=== PATIENT | female | born 1950 | race Caucasian/White ===

== ENCOUNTER 2017-12-02 17:49 | Emergency (ER) | payer BC, OTHER ==
--- NOTE | 2017-12-02 17:52 | PDOC ---
History of Present Illness - General History Source: Patient, Family, Old Records Exam Limitations: No Limitations - History of Present Illness Initial Comments: 12/02/17 18:24 The patient is a 66 year old female with a past medical history of COPD who presents to the Emergency Department with shortness of breath for 2 months. The patient states that her symptoms have persisted despite visiting Urgent Care 4 times since her symptoms originally onset in early October. She states that she took Albuterol at 6pm tonight with no alleviation of symptoms. Patient endorses a history of smoking. She does not have a primary care physician. She denies chest pain, nausea, and diarrhea. <Sincere Coker - Last Filed: 12/02/17 18:33> <Michael Platt - Last Filed: 12/02/17 18:41> - General Chief Complaint: Shortness of Breath Stated Complaint: SHORT OF BREATH Time Seen by Provider: 12/02/17 17:52 Past History <Sincere Coker - Last Filed: 12/02/17 18:33> - Past Medical History Asthma: Yes COPD: Yes - Suicide/Smoking/Psychosocial Hx Smoking History: Current every day smoker Have you smoked in the past 12 months: Yes Number of Cigarettes Smoked Daily: 10 'Breaking Loose' booklet given: 05/31/16 Hx Alcohol Use: No Drug/Substance Use Hx: No Substance Use Type: None Hx Substance Use Treatment: No <Michael Platt - Last Filed: 12/02/17 18:41> - Past Medical History Allergies/Adverse Reactions: Allergies Allergy/AdvReac Type Severity Reaction Status Date / Time No Known Allergies Allergy Verified 12/02/17 17:56 Home Medications: Ambulatory Orders Albuterol Sulfate [Proventil HFA Inhaler -] 1 - 2 inh PO QID 05/31/16 Acetaminophen [Tylenol .Regular Strength -] 650 mg PO Q6H PRN #0 tablet Albuterol 0.083% Nebulizer Valerie [Ventolin 0.083% Nebulizer Soln -] 1 amp NEB Q4H PRN #90 amp 06/03/16 Budesonide/Formeterol Fumarate [SYMBICORT 80/4.5mcg -] 2 puff IH BID #1 inhaler 06/03/16 Azithromycin [Zithromax -] 250 mg PO UTDICT 12/02/17 Review of Systems - Review of Systems Able to Perform ROS?: Yes Comments:: 12/02/17 18:24 CONSTITUTIONAL: No: Chills, Diaphoresis, Fever, Loss of Appetite, Malaise, Weakness, Weight Stable, Unintentional Wgt. Loss, Unexplained weight Loss, Other HEENTM: No: Eye Pain, Blurred Vision, Tearing, Recent change in vision, Double Vision, Cataracts, Ear Pain, Ocular Prosthesis, Ear Discharge, Nose Pain, Nose Congestion, Tinnitus, Nose Bleeding, Hearing Loss, Throat Pain, Throat Swelling , Mouth Pain, Dental Problems, Difficulty Swallowing, Mouth Swelling, Other RESPIRATORY: Yes: Symptoms reported, See HPI. Shortness of breath, difficulty breathing. No: Stridor, Wheezing, Hemoptysis, Other CARDIAC (ROS): No: Chest Pain, Edema, Irregular Heart Rate, Lightheadedness, Palpitations, Syncope, Chest Tightness, Other ABD/GI: Yes: Symptoms Reported, See HPI. No: Abdominal Distended, Abd. Pain w/ defecation, Blood Streaked Bowels, Constipated, Diarrhea, Difficulty Swallowing , Nausea, Poor Appetite, Poor Fluid Intake, Rectal Bleeding, Vomiting, Indigestion, Abdominal cramping, Tarry Stools, Other : No: Dysuria MUSCULOSKELETAL: No: Back Pain, Gout, Joint Pain, Joint Swelling, Muscle Pain, Muscle Weakness, Neck Pain, Joint Stiffness, Other INTEGUMENTARY: No: Bruising, Change in Color, Change in Hair/Nails, Dryness, Erythema, Flushing , Lesions, Lumps, Pallor, Pruritus, Rash, Sweating, Other NEUROLOGICAL: No: Headache, Numbness, Paresthesia, Pre-Existing Deficit, Seizure, Tingling, Tremors, Weakness, Unsteady Gait, Ataxia, Dizziness, Other All Other Systems: Reviewed and Negative <Sincere Coker - Last Filed: 12/02/17 18:33> *Physical Exam - Vital Signs Last Vital Signs Temp Pulse Resp BP Pulse Ox 99.8 F H 124 H 36 H 120/85 94 L 12/02/17 17:51 12/02/17 17:51 12/02/17 17:51 12/02/17 17:51 12/02/17 17:51 - Physical Exam Comments: 12/02/17 18:25 Physical Exam GENERAL APPEARANCE: Yes: Appropriately Dressed, Nourished. Mild Distress. No: Disheveled, Alcohol on Breath, Intoxicated, Cachexia, Obese, Thin, Other HEENT: positive: EOMI, SHERYL, Normal ENT Inspection, Normal Voice, TMs Normal, Pharynx Normal. negative: Symmetrical, Pale Conjunctiva, Photophobia, Scleral Icterus (R), Scleral Icterus (L), Muffled/Hoarse voice, Pharyngeal Erythema, Tonsillar Exudate, Tonsillar Erythema, Nasal Congestion, Rhinorrhea, Sinus Tenderness, Orbits, Hearing Decreased, Hearing Grossly Normal, TM Bulging, TM Dull, TM Erythema, Lesions, Duarte, Excessive drooling, Thrush, Other NECK: positive: Trachea midline, Normal Thyroid, Supple. negative: Tender, Rigid, Carotid bruit, Decreased range of motion, Stridor, Lymphadenopathy (R), Lymphadenopathy (L), Rigidity, Tender lateral, Tender midline, Thyromegaly, Other RESPIRATORY/CHEST: positive: Course breath sounds. Diminished breath sounds negative: Chest Tender, Rapid RR, Crackles, Rales, Rhonchi, Stridor, Wheezing, Dullness, Hyperresonant, Pleural Rub, Other CARDIOVASCULAR: positive: Tachycardia, Regular Rhythm, S1, S2. negative: Edema , JVD, Murmur, Diastolic Murmur, Systolic Murmur, Gallop/S3, Gallop/S4. VASCULAR PULSES: Femoral (R): 4+, Femoral (L): 4+, Carotid (R): 4+, Carotid (L) : 4+, Dorsalis-Pedis (R): 4+, Dorsalis-Pedis (L): 4+ Gastrointestinal/Abdominal: positive: Normal Bowel Sounds, Flat, Soft. negative : Tender, Organomegaly, Pulsatile Mass, Increased Bowel Sounds, Decreased BS, Protuberant, Distended, Guarding, Rebound, Tenderness, Hernia, Mass, Hepatomegaly, Splenomegaly, Other LYMPHATIC: negative: Adenopathy, Tenderness, Other MUSCULOSKELETAL: positive: Normal Inspection. negative: CVA Tenderness, CVA Tenderness (R), CVA Tenderness (L), Decreased Range of Motion, Muscle Spasm, Vertebral Tenderness, Other EXTREMITY: positive: Normal Capillary Refill, Normal Inspection, Normal Range of Motion. negative: Tender, Pelvis Stable, Coldness, Cyanosis, Delayed Capillary Refill, Pedal Edema, Swelling, Calf Tenderness, Erythema, Inflammation , Other INTEGUMENTARY: positive: Normal Color, Dry, Warm. negative: Cyanotic, Erythema , Jaundice, Mottled, Pale, Cold, Clammy, Diaphoresis, Moist, Hives, Petechiae, Rash, Swelling, Ecchymosis, Bruising, Other NEUROLOGIC: positive: beef tagger II-XII NML intact, Fully Oriented, Alert, Normal Mood/ Affect, Normal Response, Motor Strength 5/5. negative: Abnormal Cranial NS, Respond to painful stimulus, Responsive, EOM Palsy, Facial Droop, Numbness, Sensory Deficit, Finger to Nose, Confused, Disoriented, Depressed Affect, Babinski, Other 12/02/17 18:29 12/02/17 18:34 <Sincere Coker - Last Filed: 12/02/17 18:33> Progress Note - Progress Note Progress Note: CXR : increased markings, flattening diaphragms Pt will be enorsed to Dr. Ballesteros, COPD exacerbation BiPaP ordered, respiratory coming in Pt will require admission <Michael Platt - Last Filed: 12/02/17 18:41> *DC/Admit/Observation/Transfer - Attestations Scribe Attestion: 12/02/17 18:27 Documentation prepared by Sincere Coker, acting as rn medical surgical for Michael Platt MD. <Sincere Coker - Last Filed: 12/02/17 18:33> <Michael Platt - Last Filed: 12/02/17 18:41> Diagnosis at time of Disposition: COPD exacerbation - Discharge Dispostion Condition at time of disposition: Guarded
[2017-12-02] MEDS ORDERED: methylPREDNISolone NA SUCC 40 MG/1 ML VIAL IVPUSH ONE (18:20)
[2017-12-02] MEDS ORDERED: ALBUTEROL SO4 2.5/IPRATROPIUM 0.5 INH SOL 3 ML VIAL.NEB. NEB ONE ×2 (18:20→18:23)
[2017-12-02 18:22] VITALS: BP 120/85; TEMP 99.8; BMI 21.7
[2017-12-02] MEDS ORDERED: methylPREDNISolone NA SUCC 125 MG/2 ML VIAL ONE (18:23)
[2017-12-02 19:31] LABS: WHITE BLOOD COUNT 12.9 K/mm3 (4.0-10.8)
[2017-12-02 19:35] LABS: BASO % 0.3 % (0-2.0); HEMATOCRIT 39.2 % (32.4-45.2); HEMOGLOBIN 13.1 GM/dl (10.7-15.3); LYMPH % 10.6 % (8-40); MCH 32.6 pg (25.7-33.7); MCHC 33.4 g/dl (32.0-36.0); MEAN CELL VOLUME 97.5 fl (80-96); MEAN PLT VOLUME 8.4 fl (7.5-11.1); MONO % 8.6 % (3.8-10.2); NEUT % 79.5 % (42.8-82.8); PLATELET COUNT 316 K/MM3 (134-434); RBC 4.01 M/mm3 (3.60-5.2); RDW 12.9 % (11.6-15.6)
[2017-12-02 19:40] VITALS: PULSE 110
[2017-12-02 19:40] LABS: ALBUMIN 3.4 g/dl (3.5-5.0); ALK PHOS 95 U/L (32-92); ANION GAP 10 (8-16); BILIRUBIN,TOTAL 1.2 mg/dl (0.2-1.0); BLOOD UREA NITROGEN 10 mg/dl (7-18); CALCIUM 8.8 mg/dl (8.4-10.2); CHLORIDE 103 mmol/L (98-107); CO2 26 mmol/L (22-28); CREATININE 0.8 mg/dl (0.6-1.3); GLUCOSE,RANDOM 130 mg/dl (74-106); POTASSIUM 3.8 mmol/L (3.5-5.1); SGOT/AST 33 U/L (10-42); SGPT/ALT 23 U/L (10-40); SODIUM 139 mmol/L (136-145); TOT PROT 6.6 g/dl (6.4-8.3)
--- NOTE | 2017-12-02 21:21 | PDOC ---
History of Present Illness - General Chief Complaint: Shortness of Breath Stated Complaint: SHORT OF BREATH Time Seen by Provider: 12/02/17 17:52 Past History - Past Medical History Allergies/Adverse Reactions: Allergies Allergy/AdvReac Type Severity Reaction Status Date / Time No Known Allergies Allergy Verified 12/02/17 17:56 Home Medications: Ambulatory Orders Albuterol Sulfate [Proventil HFA Inhaler -] 1 - 2 inh PO QID 05/31/16 Acetaminophen [Tylenol .Regular Strength -] 650 mg PO Q6H PRN #0 tablet Albuterol 0.083% Nebulizer Valerie [Ventolin 0.083% Nebulizer Soln -] 1 amp NEB Q4H PRN #90 amp 06/03/16 Budesonide/Formeterol Fumarate [SYMBICORT 80/4.5mcg -] 2 puff IH BID #1 inhaler 06/03/16 Albuterol 0.083% Nebulizer Valerie [Ventolin 0.083% Nebulizer Soln -] 1 amp NEB Q6H PRN #40 amp 12/02/17 Azithromycin [Zithromax -] 250 mg PO UTDICT 12/02/17 Hydrocodone/Chlorphen P-Stirex [Tussionex Pennkinetic Susp] 5 ml PO HS #115 blas.er.12h MDD 5 12/02/17 Ipratropium 0.02% Nebulizer [Atrovent 0.02% Nebulizer -] 1 amp NEB QID PRN #40 amp 12/02/17 Asthma: Yes COPD: Yes - Suicide/Smoking/Psychosocial Hx Smoking History: Current every day smoker Have you smoked in the past 12 months: Yes Number of Cigarettes Smoked Daily: 10 Information on smoking cessation initiated: Yes 'Breaking Loose' booklet given: 05/31/16 Hx Alcohol Use: No Drug/Substance Use Hx: No Substance Use Type: None Hx Substance Use Treatment: No *Physical Exam - Vital Signs Last Vital Signs Temp Pulse Resp BP Pulse Ox 99.8 F H 110 H 28 H 120/85 94 L 12/02/17 17:51 12/02/17 19:39 12/02/17 19:29 12/02/17 17:51 12/02/17 19:39 ED Treatment Course - LABORATORY CBC & Chemistry Diagram: 12/02/17 19:05 12/02/17 19:05 - ADDITIONAL ORDERS Additional order review: Laboratory Results 12/02/17 12/02/17 19:05 19:05 Sodium 139 Potassium 3.8 Chloride 103 Carbon Dioxide 26 Anion Gap 10 BUN 10 D Creatinine 0.8 D Creat Clearance w eGFR > 60 Random Glucose 130 H Calcium 8.8 Total Bilirubin 1.2 H D AST 33 D ALT 23 D Alkaline Phosphatase 95 H D Troponin I < 0.03 L Total Protein 6.6 Albumin 3.4 L 12/02/17 19:05 RBC 4.01 MCV 97.5 H MCHC 33.4 RDW 12.9 MPV 8.4 Neutrophils % 79.5 Lymphocytes % 10.6 Monocytes % 8.6 Eosinophils % 1.0 Basophils % 0.3 - Medications Given in the ED: ED Medications Discontinued Medications Generic Name Dose Route Start Last Admin Trade Name Freq PRN Reason Stop Dose Admin Albuterol/Ipratropium 1 amp 12/02/17 18:20 12/02/17 18:30 Duoneb - NEB 12/02/17 18:21 1 amp ONCE ONE Administration Methylprednisolone Sodium Succinate 60 mg 12/02/17 18:20 12/02/17 19:05 Solu-Medrol - IVPUSH 12/02/17 18:21 60 mg ONCE ONE Administration Medical Decision Making - Medical Decision Making 12/02/17 21:12 received on signout. On my exam, much more comfortable. BiPAP not initiated. After two hours, marked improvement. Back to her recent baseline D/w patient approaches to her ongoing disease. Recommended admission to facilitate burrell. She refuses and will call for pulmonary fu in AM *DC/Admit/Observation/Transfer Diagnosis at time of Disposition: COPD exacerbation - Discharge Dispostion Disposition: HOME Condition at time of disposition: Guarded Admit: No - Referrals Referrals: Manuel Tolentino MD [Staff Physician] - Call tomorrow - Patient Instructions Printed Discharge Instructions: DI for Chronic Obstructive Pulmonary Disease - Post Discharge Activity
== END 2017-12-02 21:22 | disposition home or self-care (01) ==
LOC: FER 17:49
PROC: 3E0F7GC Introduction of Other Therapeutic Substance into Respiratory Tract, Via Natural or Artificial Opening (ICD-10-PCS; principal; 2017-12-02)
PROC: 3E033GC Introduction of Other Therapeutic Substance into Peripheral Vein, Percutaneous Approach (ICD-10-PCS; 2017-12-02)
DX: J44.9 Chronic obstructive pulmonary disease, unspecified (principal); F17.210 Nicotine dependence, cigarettes, uncomplicated
CPT/HCPCS: 36415; 71045-TC; 80053; 84484; 85025; 99283-25

== ENCOUNTER 2019-11-08 18:42 | Inpatient (IN) | payer OTHER ==
[2019-11-08] MEDS ORDERED: ALBUTEROL SO4 2.5/IPRATROPIUM 0.5 INH SOL 3 ML VIAL.NEB. NEB ONE ×2 (18:44→18:48)
[2019-11-08] MEDS ORDERED: EPINEPHrine 1:1,000 1 MG/1 ML - 30ML VIAL (INJECTION) SQ ONE (18:45)
[2019-11-08] MEDS ORDERED: MAGNESIUM SULF 50% (8.12 MEQ/2 ML-1 GM VIAL) IVPB ONE (18:45)
[2019-11-08] MEDS ORDERED: methylPREDNISolone NA SUCC 125 MG/2 ML VIAL IVPUSH ONE (18:55)
[2019-11-08] MEDS ORDERED: methylPREDNISolone NA SUCC 125 MG/2 ML VIAL ONE (18:57)
--- NOTE | 2019-11-08 19:08 | PDOC ---
History of Present Illness - General Stated Complaint: RESPIRATORY DISTRESS Time Seen by Provider: 11/08/19 18:56 - History of Present Illness Initial Comments: 11/08/19 19:08 68 yo F PMH COPD, never intubated in the past, presenting in respiratory distress. Reportedly called her family stating that she had SOB, and family called EMS, who found her tripoding with saturation in the low 80s despite 4 albuterol treatments. EMS gave her IM decadron, Duonebs, and brought her to ER. Unable to gather history or ROS due to work of breathing. Past History - Past Medical History Allergies/Adverse Reactions: Allergies Allergy/AdvReac Type Severity Reaction Status Date / Time No Known Allergies Allergy Verified 12/02/17 17:56 Home Medications: Ambulatory Orders Albuterol Sulfate [Proventil HFA Inhaler -] 1 - 2 inh PO QID 05/31/16 Budesonide/Formeterol Fumarate [SYMBICORT 80/4.5mcg -] 2 puff IH BID #1 inhaler 06/03/16 Albuterol 0.083% Nebulizer Valerie [Ventolin 0.083% Nebulizer Soln -] 1 amp NEB Q6H PRN #40 amp 12/02/17 Ipratropium 0.02% Nebulizer [Atrovent 0.02% Nebulizer -] 1 amp NEB QID PRN #40 amp 12/02/17 Asthma: Yes COPD: Yes - Psycho Social/Smoking Cessation Hx Smoking History: Current every day smoker Have you smoked in the past 12 months: Yes Number of Cigarettes Smoked Daily: 10 'Breaking Loose' booklet given: 05/31/16 Hx Alcohol Use: No Drug/Substance Use Hx: No Substance Use Type: None Hx Substance Use Treatment: No Review of Systems - Review of Systems Able to Perform ROS?: No (work of breathing) *Physical Exam - Physical Exam 11/08/19 19:47 Gen: well-developed, well-nourished, in severe distress Neuro: AAOX4, CN II-XII intact, FTN intact, EOMI, PERRLA, 5/5 strength, SILT HEENT: atraumatic, normocephalic, dry mucous membranes Neck: trachea midline, supple CV: tachycardic, regular rhythm, no murmurs, rubs, or gallops Pulm: shallow, rapid breathing Abd: soft, non-distended, non-tender MSK: full ROM, intact pulses Extr: no edema, no deformities Skin: warm, dry ED Treatment Course - LABORATORY CBC & Chemistry Diagram: 11/09/19 06:20 11/09/19 06:20 Medical Decision Making - Medical Decision Making 11/08/19 19:47 Concern for severe COPD exacerbation v PNA. - sepsis order set - Duoneb - magnesium - solumedrol - reassess - admit ICU 11/08/19 20:36 EKG sinus tachycardia at 126 bpm, notched QRS in V5-V6 11/08/19 20:37 Trop 0.43. 11/08/19 21:01 ABG pH 7.23, CO2 47.8. Appears improved. Will admit patient. Discharge - Discharge Information Problems reviewed: Yes Clinical Impression/Diagnosis: Acute hypoxemic respiratory failure - Follow up/Referral - Patient Discharge Instructions - Post Discharge Activity
[2019-11-08 19:12] LABS: BASO % 1.2 % (0-2.0); EOS % 0.3 % (0-4.5); HEMATOCRIT 42.9 % (32.4-45.2); HEMOGLOBIN 14.1 GM/dL (10.7-15.3); LYMPH % 37.8 % (8-40); MCH 32.6 pg (25.7-33.7); MCHC 32.8 g/dl (32.0-36.0); MEAN CELL VOLUME 99.4 fl (80-96); MONO % 7.9 % (3.8-10.2); NEUT % 52.8 % (42.8-82.8); PLATELET COUNT 274 K/MM3 (134-434); RBC 4.31 M/mm3 (3.60-5.2)
[2019-11-08 19:22] LABS: VENOUS PH 7.14 (7.31-7.41)
[2019-11-08 19:31] LABS: INR 0.87 (0.83-1.09); PROTHROMBIN TIME (PATIENT) 10.3 SEC (9.7-13.0)
[2019-11-08 19:34] LABS: ACTIVATED PTT 29.9 SECONDS (25.2-36.5)
[2019-11-08] MEDS ORDERED: ALBUTEROL SO4 0.083% IH SOL 2.5 MG/3 ML VIAL.NEB. NEB ONE (19:34)
[2019-11-08] MEDS: ALBUTEROL SO4 0.083% IH SOL 2.5 MG/3 ML VIAL.NEB. NEB SCH ×4 (19:45→20:30)
[2019-11-08 20:32] LABS: BILIRUBIN,TOTAL 0.4 mg/dL (0.2-1); CALCIUM 8.4 mg/dL (8.5-10.1); POTASSIUM 3.6 mmol/L (3.5-5.1); TOT PROT 7.4 g/dl (6.4-8.2)
[2019-11-08] MEDS ORDERED: PIPERACILLIN/TAZOB 4.5 GM 4.5 GM in DEXTROSE 5%-WATER 100 ML IVPB ONE (20:38)
[2019-11-08] MEDS ORDERED: SODIUM CHLORIDE 0.9% 500 ML INFUS.BAG IV ONE (20:39)
[2019-11-08 20:42] LABS: ARTERIAL BLD GAS O2 SATURATION 99.3 % (95-98); ARTERIAL BLOOD GAS BASE EXCESS -8.2 meq/l (-2-2); ARTERIAL BLOOD GAS PCO2 47.8 mmHg (35-45); ARTERIAL BLOOD GAS pH 7.23 (7.35-7.45)
[2019-11-08] MEDS ORDERED: PIPERACILLIN/TAZOB 4.5 GM 4.5 GM/100 ML BAG IVPB ONE (20:42)
[2019-11-08 20:44] LABS: ARTERIAL BLOOD GAS PO2 475 mmHg (80-100); CARBOXYHEMOGLOBIN < 0.5 % (0-2)
[2019-11-08 20:45] LABS: ALLENS TEST POSITIVE
--- NOTE | 2019-11-08 21:05 | PDOC ---
Documentation entered by Yefri Del Toro SCRIBE, acting as scribe for Gabe Holden MD. Gabe Holden MD: This documentation has been prepared by the Alverto matias Daniel, SCRIBE, under my direction and personally reviewed by me in its entirety. I confirm that the documentation accurately reflects all work, treatment, procedures, and medical decision making performed by me. Attending Attestation - Resident Resident Name: TinsleyOneiljenn - ED Attending Attestation I have performed the following: I have examined & evaluated the patient, The case was reviewed & discussed with the resident, I agree w/resident's findings & plan, Exceptions are as noted - HPI HPI: 11/08/19 18:50 The patient is a 68 year old female with a past medical history of emphysema here today for evaluation of shortness of breath. As per EMS, the patient began short of breath tonight and called her family who called EMS. EMS states that the patient was found tripoding with an O2 sat in the mid to low 80s and reported that she took 4 albuterol treatments at home. EMS reports that they gave albuterol, duoneb, and 10 mg of decadron IM. Patient denies ever being intubated in the past. Allergies: NKA - Physicial Exam PE: 11/08/19 20:58 Vitals: Triage Vital signs reviewed General Appearance: Moderate respiratory distress, well nourished well developed , Head: Atraumatic, Neck: Supple; no Nucal rigidity Chest Wall: Nontender Cardiac: Tachycardic Lungs: Wheezing bilaterally Abdomen: Soft, non distended, normal bowel sounds, non tender to palpation Extremities: Full range of motion to all extremities, no cyanosis, clubbing, or edema Skin: Warm and dry, no rashes or lesions, no rash, no petechiae Psych: Normal mood, normal affect - Critical Care Time Total Critical Care Time: 55 Critical Care Statement: The care of this patient involved high complexity decision making to prevent further life threatening deterioration of the patient 's condition and/or to evaluate & treat vital organ system(s) failure or risk of failure. - Medical Decision Making 11/08/19 20:58 Moderate to severe respiratory distress/failure patient presented to the ED tripoding on BiPAP via EMS 1 DuoNeb 2 albuterol nebs given in the field with Decadron patient edwar-intubation upon arrival however given history of severe emphysema all efforts made to avoid intubation Patient placed on BiPAP in the ED 2 g magnesium given IV additional IV Solu- Medrol given and 2 additional duo nebs given Patient placed on every 15 minute Ventolin nebs Initial VBG demonstrates low pH Repeat after approximately 30 to 45 minutes on BiPAP demonstrates improving pH high O2 O2 decreased from 100% FiO2 to 60% ICU has been consulted Chest x-ray shows likely right lower lobe pneumonia Zosyn ordered for antibiotic coverage Reevaluation patient improving mental status improving ABG improving however given tenuous respiratory status decision made to admit to ICU for further management.
--- NOTE | 2019-11-08 21:35 | PN ---
Teaching Attending Note Name of Resident: Deep Vaughan ATTENDING PHYSICIAN STATEMENT I saw and evaluated the patient. I reviewed the resident's note and discussed the case with the resident. I agree with the resident's findings and plan as documented. SUBJECTIVE: Patient is a 68 year old woman with a PMH of Tobacco use and Emphysema here today for evaluation of shortness of breath. As per EMS, the patient began short of breath tonight and called her family who called EMS. EMS states that the patient was found tripoding with an O2 saturation in the mid to low 80s and reported that she took 4 albuterol treatments at home. EMS reports that they gave albuterol, duoneb, and 10 mg of decadron IM. Patient denies ever being intubated in the past. Denies fever, chills, nausea, vomiting, chest pain , headache, dysuria or diarrhea. Denies alcohol or illicit drug use. No recent travel or sick contacts. FH of CAD. Did not get the Flu vaccine. OBJECTIVE: Alert and on BiPAP Vital Signs Period Temp Pulse Resp BP Sys/Gar Pulse Ox Last 24 Hr 115-140 22-35 113-149/73-106 93-100 HEENT: No Jaundice, eye redness or discharge, PERRLA, EOMI. Normocephalic, atraumatic. External ears are normal and hearing is grossly intact. No nasal discharge. Neck: Supple, nontender. No palpable adenopathy or thyromegaly. No JVD Chest: Good effort. Diminished breath sound and intermittent wheezing. Clear to percussion. Heart: Regular. No S3, rub or murmur Abdomen: Not distended, soft, nontender and no HSM. No rebound or guarding. Normal bowel sounds. Ext: Peripheral pulses intact. No leg edema. Skin: Warm and dry. No petechiae, rash or ecchymosis. Neuro: Alert. Oriented x3. CN 2-12 grossly intact. Sensation grossly intact in all four extremities and DTR are symmetric. Psych: Appropriate mood and affect. Good insight. Current Medications Generic Name Dose Route Start Last Admin Trade Name Freq PRN Reason Stop Dose Admin Chlorhexidine Gluconate 1 applic 11/08/19 22:00 Hibiclens For Decolonization - TP HS BART Enoxaparin Sodium 40 mg 11/08/19 21:45 Lovenox - SQ DAILY BART Mupirocin 1 applic 11/08/19 22:00 Bactroban Ointment (For Decolonization) - NS 11/13/19 21:59 BID [facility] Home Medications Medication Instructions Recorded Albuterol Sulfate [Proventil HFA 1 - 2 inh PO QID 05/31/16 Inhaler -] Budesonide/Formeterol Fumarate 2 puff IH BID #1 inhaler 06/03/16 [SYMBICORT 80/4.5mcg -] Albuterol 0.083% Nebulizer Valerie 1 amp NEB Q6H PRN #40 amp 12/02/17 [Ventolin 0.083% Nebulizer Soln -] Ipratropium 0.02% Nebulizer 1 amp NEB QID PRN #40 amp 12/02/17 [Atrovent 0.02% Nebulizer -] Abnormal Lab Results 11/08/19 11/08/19 11/08/19 18:50 18:50 19:53 WBC 14.0 H MCV 99.4 H ABG pH ABG pCO2 at Pt Temp ABG pO2 at Pt Temp ABG HCO3 ABG O2 Sat (Measured) ABG Base Excess VBG pH 7.14 L* POC VBG pCO2 62.0 H POC VBG pO2 241 H VBG HCO3 20.2 L VBG O2 Sat (Grzegorz) 99.0 H VBG Base Excess -9.6 L Sodium 135 L Carbon Dioxide 19 L Random Glucose 184 H Calcium 8.4 L AST 39 H Troponin I 11/08/19 11/08/19 19:53 20:20 WBC MCV ABG pH 7.23 L ABG pCO2 at Pt Temp 47.8 H ABG pO2 at Pt Temp 475 H ABG HCO3 19.3 L ABG O2 Sat (Measured) 99.3 H ABG Base Excess -8.2 L VBG pH POC VBG pCO2 POC VBG pO2 VBG HCO3 VBG O2 Sat (Grzegorz) VBG Base Excess Sodium Carbon Dioxide Random Glucose Calcium AST Troponin I 0.43 H ASSESSMENT AND PLAN: 1. COPD exacerbation/Hypoxic&Hypercapnic respiratory failure - No obvious precipitating factor. Will continue on BiPAP in the ICU, treat with solumedrol, duoneb, symbicort, rocephin and azithromycin. Get urine legionella antigen and RSV test. CXR shows increased interstitial markings. EKG shows sinus tachycardia , LAE and septal infarct of undetermined age. Elevated troponin may be due to demand ischemia, but will trend troponin to rule out ACS and get ECHO. Will continue comprehensive care for all of patients comorbid conditions. 2. Tobacco Use Counseled on risks associated with tobacco use. We will provide patient all the necessary assistance to facilitate smoking cessation and prescribe Nicotine patch. 3. DVT prophylaxis - Lovenox 40 mg SQ q 24 hours. 4. Advance directives - Full code
[2019-11-08] MEDS ORDERED: CHLORHEXIDINE GLUCONATE 4% CLEANSER FOR DECOLONIZATION TP SCH (22:00)
[2019-11-08] MEDS ORDERED: ENOXAPARIN NA (PORCINE) 40 MG/0.4 ML DISP.SYRIN SQ ONE (22:59)
[2019-11-08] MEDS: ENOXAPARIN NA (PORCINE) 40 MG/0.4 ML DISP.SYRIN SQ SCH (23:07)
[2019-11-08 23:08] LABS: URINE BILIRUBIN 1+ (NEGATIVE); URINE COLOR Yellow; URINE GLUCOSE (UA) Negative (NEGATIVE); URINE KETONE Trace (NEGATIVE); URINE LEUK ESTERASE 1+ (NEGATIVE); URINE NITRITE Negative (NEGATIVE); URINE PROTEIN 2+ (NEGATIVE); URINE UROBILINOGEN 0.2 mg/dL (0.2-1.0)
--- NOTE | 2019-11-08 23:09 | PROC ---
Central Line Insertion Indication: Sepsis, Vasopressor Risks and Benefits Explained: Yes Consent on Chart: Yes Central Line: Triple Lumen Catheter Anesthesia: 1% Lidocaine Sterile Technique: Yes Ultrasound Guided Assistance: Yes Position: Right Internal Jugular Post Insertion: Yes: Bilateral Breath Sounds, Bilateral Chest Expansion, Chest X-Ray Ordered Sterile Dressing Applied: Yes
[2019-11-08 23:14] LABS: URINE APPEARANCE CLOUDY
--- NOTE | 2019-11-08 23:14 | HP ---
CHIEF COMPLAINT: shortness of breath PCP: HISTORY OF PRESENT ILLNESS: Patient is a 58 year old female with history of COPD (negative prior intubation) , irritable bowel syndrome, presents with complaint of shortness of breath. Patient endorses symptoms have been onging for past week. Symptoms associated with nonproductive cough. Patient saw an urgent care care physician yesterday who diagnosed her with sinus infection, and prescribed amoxicillin; patient has been compliant with antibiotics for past two days. She has used her Albuterol nebulzier with increased frequency which has not been significantly palliative. Patient did not receive influenza vaccination this year. Did not receive pneumonia vaccination. Per ED note, patient was found in tripod position by EMS responders, saturating in 80s despite numerous albuterol nebulizer treatment. She received Decadron. In the ED, patient was placed on BiLevel ventillation with significant improvement of her work of breathing. ER course was notable for: (1) ABG: pH 7.23 -CO2 47.8 -O2 475. CO2 19 (2) Chest radiograph (3) MethylPrednisone 125mg IV, Magnesium 2grams IV, Recent Travel: denies PAST MEDICAL HISTORY: COPD, IBS PAST SURGICAL HISTORY: denies Social History: Lives alone in apartment. Retired; used to work for [employer]. Independent in her activities of daily living. Smoking: Currently smokes 1/2 pack per day. Smoking for past 50 years. Alcohol: Admits 1-2 mixed drinks most nights. Drugs: Denies illicit drug use. Allergies No Known Allergies Allergy (Verified 12/02/17 17:56) HOME MEDICATIONS: Home Medications Medication Instructions Recorded Albuterol Sulfate [Proventil HFA 1 - 2 inh PO QID 05/31/16 Inhaler -] Budesonide/Formeterol Fumarate 2 puff IH BID #1 inhaler 06/03/16 [SYMBICORT 80/4.5mcg -] Albuterol 0.083% Nebulizer Valerie 1 amp NEB Q6H PRN #40 amp 12/02/17 [Ventolin 0.083% Nebulizer Soln -] Ipratropium 0.02% Nebulizer 1 amp NEB QID PRN #40 amp 12/02/17 [Atrovent 0.02% Nebulizer -] REVIEW OF SYSTEMS CONSTITUTIONAL: Admits: Generalized weakness, malaise. Absent: fever, chills, diaphoresis, loss of appetite, weight change HEENT: Admits: nasal congestion. Absent: throat pain, throat swelling, difficulty swallowing, mouth swelling, ear pain, eye pain, visual changes CARDIOVASCULAR: Absent: chest pain, syncope, palpitations, irregular heart rate, lightheadedness , peripheral edema RESPIRATORY: Admits: shortness of breath, cough. Absent: dyspnea with exertion, orthopnea, wheezing, stridor, hemoptysis GASTROINTESTINAL: Absent: abdominal pain, abdominal distension, nausea, vomiting, diarrhea, constipation, melena, hematochezia GENITOURINARY: Absent: dysuria, frequency, urgency, hesitancy, hematuria, flank pain, genital pain MUSCULOSKELETAL: Absent: myalgia, arthralgia, joint swelling, back pain, neck pain SKIN: Absent: rash, itching, pallor HEMATOLOGIC/IMMUNOLOGIC: Absent: easy bleeding, easy bruising, lymphadenopathy, frequent infections ENDOCRINE: Absent: unexplained weight gain, unexplained weight loss, heat intolerance, cold intolerance NEUROLOGIC: Absent: headache, focal weakness or paresthesias, dizziness, unsteady gait, seizure, mental status changes, bladder or bowel incontinence PSYCHIATRIC: Absent: anxiety, depression, suicidal or homicidal ideation, hallucinations. PHYSICAL EXAMINATION Vital Signs - 24 hr 11/08/19 11/08/19 11/08/19 18:45 19:00 19:08 Temperature Pulse Rate 140 H Pulse Rate [ 140 H 133 H Right Radial] Respiratory 35 H 26 H 26 H Rate Blood Pressure 146/104 H Blood Pressure 146/104 H 147/105 H [Right Arm] O2 Sat by Pulse 93 L 97 93 L Oximetry (%) 11/08/19 11/08/19 11/08/19 19:20 19:32 20:00 Temperature Pulse Rate Pulse Rate [ 128 H 123 H Right Radial] Respiratory 31 H 23 H Rate Blood Pressure Blood Pressure 149/106 H 113/86 [Right Arm] O2 Sat by Pulse 100 93 L Oximetry (%) 11/08/19 11/08/19 11/08/19 20:33 20:54 23:13 Temperature 98.6 F Pulse Rate Pulse Rate [ 115 H Right Radial] Respiratory 22 H Rate Blood Pressure Blood Pressure 116/73 [Right Arm] O2 Sat by Pulse 100 100 Oximetry (%) GENERAL: Awake, alert, and fully oriented, in no acute distress. On Bilevel ventillation; speaking full sentences HEAD: Normal with no signs of trauma. EYES: Pupils equal, round and reactive to light, extraocular movements intact, sclera anicteric, conjunctiva clear. EARS, NOSE, THROAT: Oropharynx clear without exudates. Moist mucous membranes. NECK: Supple without lymphadenopathy, or JVD. Negative stridor. LUNGS: Poor air entry bilaterally. Diffuse rhonchi auscultated with bibasilar wheezes. No accessory muscle use. HEART: Regular rate and rhythm, normal S1 and S2 without murmur, rub or gallop. ABDOMEN: Soft, nontender, not distended, normoactive bowel sounds, no guarding, no rebound, no masses. No hepatomegaly or splenomegaly. MUSCULOSKELETAL: Normal range of motion at all joints. No bony deformities or tenderness. No CVA tenderness. EXTREMITIES: 2+ pulses, warm, well-perfused. No cyanosis. No clubbing. No peripheral edema bilateral lower extremities. NEUROLOGICAL: Cranial nerves II-XII intact. Normal speech. No gross focal defecits. PSYCHIATRIC: Cooperative. Good eye contact. Appropriate mood and affect. SKIN: Warm, dry. Laboratory Results - last 24 hr 11/08/19 11/08/19 11/08/19 18:50 18:50 18:50 WBC 14.0 H RBC 4.31 Hgb 14.1 Hct 42.9 MCV 99.4 H MCH 32.6 MCHC 32.8 RDW 14.0 Plt Count 274 MPV 8.0 Absolute Neuts (auto) 7.4 Neutrophils % 52.8 Lymphocytes % 37.8 Monocytes % 7.9 Eosinophils % 0.3 Basophils % 1.2 Nucleated RBC % 0 PT with INR 10.30 INR 0.87 PTT (Actin FS) 29.9 Anticoagulation Therapy Puncture Site ABG pH ABG pCO2 at Pt Temp ABG pO2 at Pt Temp ABG HCO3 ABG O2 Sat (Measured) ABG O2 Content ABG Base Excess Noah Test VBG pH POC VBG pCO2 POC VBG pO2 VBG HCO3 VBG O2 Sat (Grzegorz) VBG Base Excess Carboxyhemoglobin Methemoglobin O2 Delivery Device Oxygen Flow Rate Vent Mode Vent Rate Mechanical Rate Pressure Support Vent Sodium Potassium Chloride Carbon Dioxide Anion Gap BUN Creatinine Est GFR (CKD-EPI)AfAm Est GFR (CKD-EPI)NonAf Random Glucose Lactic Acid Calcium Total Bilirubin AST ALT Alkaline Phosphatase Troponin I Cancelled Total Protein Albumin Urine Color Urine Appearance Urine pH Ur Specific [place] Urine Protein Urine Glucose (UA) Urine Ketones Urine Blood Urine Nitrite Urine Bilirubin Urine Urobilinogen Ur Leukocyte Esterase Influenza A (Rapid) Influenza B (Rapid) 11/08/19 11/08/19 11/08/19 18:50 18:50 18:50 WBC RBC Hgb Hct MCV MCH MCHC RDW Plt Count MPV Absolute Neuts (auto) Neutrophils % Lymphocytes % Monocytes % Eosinophils % Basophils % Nucleated RBC % PT with INR INR PTT (Actin FS) Anticoagulation Therapy Puncture Site ABG pH ABG pCO2 at Pt Temp ABG pO2 at Pt Temp ABG HCO3 ABG O2 Sat (Measured) ABG O2 Content ABG Base Excess Noah Test VBG pH 7.14 L* POC VBG pCO2 62.0 H POC VBG pO2 241 H VBG HCO3 20.2 L VBG O2 Sat (Grzegorz) 99.0 H VBG Base Excess -9.6 L Carboxyhemoglobin Methemoglobin O2 Delivery Device Oxygen Flow Rate Vent Mode Vent Rate Mechanical Rate Pressure Support Vent Sodium Cancelled Potassium Cancelled Chloride Cancelled Carbon Dioxide Cancelled Anion Gap Cancelled BUN Cancelled Creatinine Cancelled Est GFR (CKD-EPI)AfAm Cancelled Est GFR (CKD-EPI)NonAf Cancelled Random Glucose Cancelled Lactic Acid 1.7 Calcium Cancelled Total Bilirubin Cancelled AST Cancelled ALT Cancelled Alkaline Phosphatase Cancelled Troponin I Total Protein Cancelled Albumin Cancelled Urine Color Urine Appearance Urine pH Ur Specific [place] Urine Protein Urine Glucose (UA) Urine Ketones Urine Blood Urine Nitrite Urine Bilirubin Urine Urobilinogen Ur Leukocyte Esterase Influenza A (Rapid) Influenza B (Rapid) 11/08/19 11/08/19 11/08/19 19:53 19:53 20:05 WBC RBC Hgb Hct MCV MCH MCHC RDW Plt Count MPV Absolute Neuts (auto) Neutrophils % Lymphocytes % Monocytes % Eosinophils % Basophils % Nucleated RBC % PT with INR INR PTT (Actin FS) Anticoagulation Therapy Puncture Site ABG pH ABG pCO2 at Pt Temp ABG pO2 at Pt Temp ABG HCO3 ABG O2 Sat (Measured) ABG O2 Content ABG Base Excess Noah Test VBG pH POC VBG pCO2 POC VBG pO2 VBG HCO3 VBG O2 Sat (Grzegorz) VBG Base Excess Carboxyhemoglobin Methemoglobin O2 Delivery Device Oxygen Flow Rate Vent Mode Vent Rate Mechanical Rate Pressure Support Vent Sodium 135 L Potassium 3.6 Chloride 103 Carbon Dioxide 19 L Anion Gap 13 BUN 10.0 Creatinine 1.0 Est GFR (CKD-EPI)AfAm 66.57 Est GFR (CKD-EPI)NonAf 57.44 Random Glucose 184 H Lactic Acid Calcium 8.4 L Total Bilirubin 0.4 AST 39 H ALT 39 Alkaline Phosphatase 78 Troponin I 0.43 H Total Protein 7.4 Albumin 4.0 Urine Color Urine Appearance Urine pH Ur Specific [place] Urine Protein Urine Glucose (UA) Urine Ketones Urine Blood Urine Nitrite Urine Bilirubin Urine Urobilinogen Ur Leukocyte Esterase Influenza A (Rapid) Negative Influenza B (Rapid) Negative 11/08/19 11/08/19 20:20 22:46 WBC RBC Hgb Hct MCV MCH MCHC RDW Plt Count MPV Absolute Neuts (auto) Neutrophils % Lymphocytes % Monocytes % Eosinophils % Basophils % Nucleated RBC % PT with INR INR PTT (Actin FS) Anticoagulation Therapy No Result Required. Puncture Site Right radial ABG pH 7.23 L ABG pCO2 at Pt Temp 47.8 H ABG pO2 at Pt Temp 475 H ABG HCO3 19.3 L ABG O2 Sat (Measured) 99.3 H ABG O2 Content No Result Required. ABG Base Excess -8.2 L Noah Test Positive VBG pH POC VBG pCO2 POC VBG pO2 VBG HCO3 VBG O2 Sat (Grzegorz) VBG Base Excess Carboxyhemoglobin < 0.5 Methemoglobin < 1.0 O2 Delivery Device No Result Required. Oxygen Flow Rate 100% Vent Mode No Result Required. Vent Rate 16 Mechanical Rate No Result Required. Pressure Support Vent No Result Required. Sodium Potassium Chloride Carbon Dioxide Anion Gap BUN Creatinine Est GFR (CKD-EPI)AfAm Est GFR (CKD-EPI)NonAf Random Glucose Lactic Acid Calcium Total Bilirubin AST ALT Alkaline Phosphatase Troponin I Total Protein Albumin Urine Color Yellow Urine Appearance Clear Urine pH 5.0 Ur Specific [place] 1.025 Urine Protein 2+ H Urine Glucose (UA) Negative Urine Ketones Trace Urine Blood 3+ H Urine Nitrite Negative Urine Bilirubin 1+ H Urine Urobilinogen 0.2 Ur Leukocyte Esterase 1+ H Influenza A (Rapid) Influenza B (Rapid) ASSESSMENT/PLAN: Patient is a 58 year old female with history of COPD (negative prior intubation) , irritable bowel syndrome, presents with complaint of shortness of breath. Admitted for acute COPD exacerbation. COPD exacerbation -Likely secondary to viral vs. bacterial upper respiratory tract infection. -Chest radiograph -Lactic acid 1.7 -Patient received Vancomycin, Zosyn in ED. Though patient has been on Amoxicillin, she is only on second day. Will treat with Ceftriaxone 1 gram IV daily, Azithromycin 500mg IV daily. -Infleunza A/B swab, sputum culture, urine for legionella antigen, RSV -Follow blood cultures, urine cultures, -Recieved MethylPrednisone 125mg IV in ED. Will continue MethylPrednisone 60mg IV Q6 hours. -DuoNebs Q4 hours standing Troponinemia -Troponin 0.43 -> 0.84. Likely demand secondary to COPD exacerbation. Will trend troponins -Currently patient is free of chest pain. -EKG reveals sinus tachycardia -Cardiac ECHO -Cardiac monitoring Nicotine dependence -Counselled regarding smoking cessation -Nicotine patch 21mg transdermal daily. FEN -No IV fluids indicated -Follow BMP -Regular diet Prophylaxis -Lovenox 40mg subq daily Disposition -Admit to ICU Visit type - Emergency Visit Emergency Visit: Yes ED Registration Date: 11/08/19 Care time: The patient presented to the Emergency Department on the above date and was hospitalized for further evaluation of their emergent condition. - New Patient This patient is new to me today: Yes Date on this admission: 11/09/19 - Critical Care Critical Care patient: No ATTENDING PHYSICIAN STATEMENT I saw and evaluated the patient. I reviewed the resident's note and discussed the case with the resident. I agree with the resident's findings and plan as documented. SUBJECTIVE: OBJECTIVE: ASSESSMENT AND PLAN:
--- NOTE | 2019-11-08 23:16 | CONSULT ---
Consultation: REQUESTING PROVIDER: Dr. Holden CONSULT REQUEST: We have been asked to medically evaluate this patient for acute hypoxic respiratory failure HISTORY OF PRESENT ILLNESS: 68F PMH COPD, IBS, spinal disc herniation, who presents today with respiratory distress from home. Patient complains of sinusitis for the past week, associated with rhinorrhea, congestion, and nonproductive cough. Patient complains of having increasing difficulty of breathing and shortness of breath today. This episode is similar to an exacerbation of her COPD she had in 2016. Patient follows with Dr. Tolentino but has not seen him in a few years; she currently takes albuterol and Symbicort at home. She is not on any other medications except amoxicillin which is prescribed to her from an urgent care visit the day before admission. Today patient was feeling shortness of breath, and her medications at home did not alleviate her symptoms. She is a smoker, she is unable to quantify PPD, as she began smoking as a teenager and has recently begun cutting down. She is currently smoking 1/2 pack every other day. When she arrived to the emergency department she was noted to be in respiratory distress, tripodding, and was placed on BiPAP. After an hour of BiPAP patient felt much better, but was still tachypneic. REVIEW OF SYSTEMS: CONSTITUTIONAL: Absent: fever, chills, diaphoresis, weight change Present: generalized weakness, malaise, loss of appetite, HEENT: Absent: throat pain, throat swelling, difficulty swallowing, mouth swelling, ear pain, eye pain, visual changes Present: rhinorrhea, nasal congestion, CARDIOVASCULAR: Absent: chest pain, syncope, palpitations, irregular heart rate, lightheadedness , peripheral edema RESPIRATORY: Absent: dyspnea with exertion, orthopnea, wheezing, stridor, hemoptysis Present: cough, shortness of breath, GASTROINTESTINAL: Absent: abdominal pain, abdominal distension, nausea, vomiting, diarrhea, constipation, melena, hematochezia GENITOURINARY: Absent: dysuria, frequency, urgency, hesitancy, hematuria, flank pain, genital pain MUSCULOSKELETAL: Absent: joint swelling, back pain, neck pain Present: myalgia (chronic) arthralgia (chronic) SKIN: Absent: rash, itching, pallor HEMATOLOGIC/IMMUNOLOGIC: Absent: easy bleeding, easy bruising, lymphadenopathy, frequent infections ENDOCRINE: Absent: unexplained weight gain, unexplained weight loss, heat intolerance, cold intolerance NEUROLOGIC: Absent: headache, focal weakness or paresthesias, dizziness, unsteady gait, seizure, mental status changes, bladder or bowel incontinence PSYCHIATRIC: Absent: anxiety, depression, suicidal or homicidal ideation, hallucinations. PHYSICAL EXAMINATION Vital Signs - 24 hr 11/08/19 11/08/19 11/08/19 18:45 19:00 19:08 Pulse Rate 140 H Pulse Rate [ 140 H 133 H Right Radial] Respiratory 35 H 26 H 26 H Rate Blood Pressure 146/104 H Blood Pressure 146/104 H 147/105 H [Right Arm] O2 Sat by Pulse 93 L 97 93 L Oximetry (%) 11/08/19 11/08/19 11/08/19 19:20 19:32 20:00 Pulse Rate Pulse Rate [ 128 H 123 H Right Radial] Respiratory 31 H 23 H Rate Blood Pressure Blood Pressure 149/106 H 113/86 [Right Arm] O2 Sat by Pulse 100 93 L Oximetry (%) 11/08/19 11/08/19 20:33 20:54 Pulse Rate Pulse Rate [ 115 H Right Radial] Respiratory 22 H Rate Blood Pressure Blood Pressure 116/73 [Right Arm] O2 Sat by Pulse 100 100 Oximetry (%) GENERAL: Awake, alert, and fully oriented, in mild discomfort. HEAD: Normal with no signs of trauma. EYES: EOMI, sclera anicteric EARS, NOSE, THROAT: BiPAP in place. NECK: Normal range of motion, supple without lymphadenopathy, JVD, or masses. LUNGS: Wheezes heard throughout right lung. Left lung clear to auscultation. HEART: Tachycardic, normal S1 and S2 without murmur, rub or gallop. ABDOMEN: Soft, nontender, not distended, normoactive bowel sounds, no guarding, no rebound, no masses. No hepatomegaly or splenomegaly. MUSCULOSKELETAL: Normal range of motion at all joints. No bony deformities or tenderness. No CVA tenderness. UPPER EXTREMITIES: 2+ pulses, warm, well-perfused. No cyanosis. No clubbing. Cap refill <2 seconds. No peripheral edema. LOWER EXTREMITIES: 2+ pulses, warm, well-perfused. No calf tenderness. No peripheral edema. NEUROLOGICAL: Cranial nerves II-XII intact. Normal speech. Normal gait. PSYCHIATRIC: Cooperative. Good eye contact. Appropriate mood and affect. SKIN: Warm, dry, normal turgor, no rashes or lesions noted. Laboratory Results - last 24 hr 11/08/19 11/08/19 11/08/19 18:50 18:50 18:50 WBC 14.0 H RBC 4.31 Hgb 14.1 Hct 42.9 MCV 99.4 H MCH 32.6 MCHC 32.8 RDW 14.0 Plt Count 274 MPV 8.0 Absolute Neuts (auto) 7.4 Neutrophils % 52.8 Lymphocytes % 37.8 Monocytes % 7.9 Eosinophils % 0.3 Basophils % 1.2 Nucleated RBC % 0 PT with INR 10.30 INR 0.87 PTT (Actin FS) 29.9 Anticoagulation Therapy Puncture Site ABG pH ABG pCO2 at Pt Temp ABG pO2 at Pt Temp ABG HCO3 ABG O2 Sat (Measured) ABG O2 Content ABG Base Excess Noah Test VBG pH POC VBG pCO2 POC VBG pO2 VBG HCO3 VBG O2 Sat (Grzegorz) VBG Base Excess Carboxyhemoglobin Methemoglobin O2 Delivery Device Oxygen Flow Rate Vent Mode Vent Rate Mechanical Rate Pressure Support Vent Sodium Potassium Chloride Carbon Dioxide Anion Gap BUN Creatinine Est GFR (CKD-EPI)AfAm Est GFR (CKD-EPI)NonAf Random Glucose Lactic Acid Calcium Total Bilirubin AST ALT Alkaline Phosphatase Troponin I Cancelled Total Protein Albumin Influenza A (Rapid) Influenza B (Rapid) 11/08/19 11/08/19 11/08/19 18:50 18:50 18:50 WBC RBC Hgb Hct MCV MCH MCHC RDW Plt Count MPV Absolute Neuts (auto) Neutrophils % Lymphocytes % Monocytes % Eosinophils % Basophils % Nucleated RBC % PT with INR INR PTT (Actin FS) Anticoagulation Therapy Puncture Site ABG pH ABG pCO2 at Pt Temp ABG pO2 at Pt Temp ABG HCO3 ABG O2 Sat (Measured) ABG O2 Content ABG Base Excess Noah Test VBG pH 7.14 L* POC VBG pCO2 62.0 H POC VBG pO2 241 H VBG HCO3 20.2 L VBG O2 Sat (Grzegorz) 99.0 H VBG Base Excess -9.6 L Carboxyhemoglobin Methemoglobin O2 Delivery Device Oxygen Flow Rate Vent Mode Vent Rate Mechanical Rate Pressure Support Vent Sodium Cancelled Potassium Cancelled Chloride Cancelled Carbon Dioxide Cancelled Anion Gap Cancelled BUN Cancelled Creatinine Cancelled Est GFR (CKD-EPI)AfAm Cancelled Est GFR (CKD-EPI)NonAf Cancelled Random Glucose Cancelled Lactic Acid 1.7 Calcium Cancelled Total Bilirubin Cancelled AST Cancelled ALT Cancelled Alkaline Phosphatase Cancelled Troponin I Total Protein Cancelled Albumin Cancelled Influenza A (Rapid) Influenza B (Rapid) 11/08/19 11/08/19 11/08/19 19:53 19:53 20:05 WBC RBC Hgb Hct MCV MCH MCHC RDW Plt Count MPV Absolute Neuts (auto) Neutrophils % Lymphocytes % Monocytes % Eosinophils % Basophils % Nucleated RBC % PT with INR INR PTT (Actin FS) Anticoagulation Therapy Puncture Site ABG pH ABG pCO2 at Pt Temp ABG pO2 at Pt Temp ABG HCO3 ABG O2 Sat (Measured) ABG O2 Content ABG Base Excess Noah Test VBG pH POC VBG pCO2 POC VBG pO2 VBG HCO3 VBG O2 Sat (Grzegorz) VBG Base Excess Carboxyhemoglobin Methemoglobin O2 Delivery Device Oxygen Flow Rate Vent Mode Vent Rate Mechanical Rate Pressure Support Vent Sodium 135 L Potassium 3.6 Chloride 103 Carbon Dioxide 19 L Anion Gap 13 BUN 10.0 Creatinine 1.0 Est GFR (CKD-EPI)AfAm 66.57 Est GFR (CKD-EPI)NonAf 57.44 Random Glucose 184 H Lactic Acid Calcium 8.4 L Total Bilirubin 0.4 AST 39 H ALT 39 Alkaline Phosphatase 78 Troponin I 0.43 H Total Protein 7.4 Albumin 4.0 Influenza A (Rapid) Negative Influenza B (Rapid) Negative 11/08/19 20:20 WBC RBC Hgb Hct MCV MCH MCHC RDW Plt Count MPV Absolute Neuts (auto) Neutrophils % Lymphocytes % Monocytes % Eosinophils % Basophils % Nucleated RBC % PT with INR INR PTT (Actin FS) Anticoagulation Therapy No Result Required. Puncture Site Right radial ABG pH 7.23 L ABG pCO2 at Pt Temp 47.8 H ABG pO2 at Pt Temp 475 H ABG HCO3 19.3 L ABG O2 Sat (Measured) 99.3 H ABG O2 Content No Result Required. ABG Base Excess -8.2 L Noah Test Positive VBG pH POC VBG pCO2 POC VBG pO2 VBG HCO3 VBG O2 Sat (Grzegorz) VBG Base Excess Carboxyhemoglobin < 0.5 Methemoglobin < 1.0 O2 Delivery Device No Result Required. Oxygen Flow Rate 100% Vent Mode No Result Required. Vent Rate 16 Mechanical Rate No Result Required. Pressure Support Vent No Result Required. Sodium Potassium Chloride Carbon Dioxide Anion Gap BUN Creatinine Est GFR (CKD-EPI)AfAm Est GFR (CKD-EPI)NonAf Random Glucose Lactic Acid Calcium Total Bilirubin AST ALT Alkaline Phosphatase Troponin I Total Protein Albumin Influenza A (Rapid) Influenza B (Rapid) Active Medications Generic Name Dose Route Start Last Admin Trade Name Freq PRN Reason Stop Dose Admin Chlorhexidine Gluconate 1 applic 11/08/19 22:00 Hibiclens For Decolonization - TP HS BART Enoxaparin Sodium 40 mg 11/08/19 21:45 Lovenox - SQ DAILY BART Mupirocin 1 applic 11/08/19 22:00 Bactroban Ointment (For Decolonization) - NS 11/13/19 21:59 BID BART ASSESSMENT/PLAN: 68F PMH COPD, IBS, spinal disc herniation, who presents today with acute hypoxic respiratory failure secondary to COPD exacerbation. Neuro -Patient is AAOx3 -Mentating well, able to stay on BiPAP Cardiovascular -Denies any chest pain today -EKG has QTC of 457 -Was tachycardic on presentation -Will continue to monitor Pulmonary -COPD exacerbation -Chest X-ray shows on acute changes compared to previous x-ray from last visit to [facility] -F/U repeat X-ray tomorrow -Duonebs -Solumedrol -Azithromycin -Ceftriaxone -F/U repeat ABG Renal -Stable, will continue to monitor GI -Hx of IBS, decreased PO intake the past week -Once off BiPAP will encourage PO intake ID -Ceftriaxone and Azithromycin -Zoysn given in ED -F/U repeat chest x-ray and CBC -F/U cultures DVT: Lovenox F: Oral hydration E: Monitor CMP N: Regular diet Dispo: Admitted to ICU. Thank you for this consultative opportunity. Visit type - Emergency Visit Emergency Visit: Yes ED Registration Date: 11/08/19 Care time: The patient presented to the Emergency Department on the above date and was hospitalized for further evaluation of their emergent condition. - New Patient This patient is new to me today: Yes Date on this admission: 11/09/19 - Critical Care Critical Care patient: Yes Total Critical Care Time (in minutes): 45 Critical Care Statement: The care of this patient involved high complexity decision making to prevent further life threatening deterioration of the patient 's condition and/or to evaluate & treat vital organ system(s) failure or risk of failure. ATTENDING PHYSICIAN STATEMENT I saw and evaluated the patient. I reviewed the resident's note and discussed the case with the resident. I agree with the resident's findings and plan as documented. SUBJECTIVE: OBJECTIVE: ASSESSMENT AND PLAN:
[2019-11-08 23:31] LABS: URINE RBC 35-40 /hpf (0-4); URINE WBC 50-60 /hpf (0-5)
[2019-11-08 23:32] LABS: EPI CELLS MODERATE /HPF (0-5/HPF); URINE BACTERIA MODERATE /hpf (NEGATIVE); YEAST NONE SEEN (NEGATIVE)
[2019-11-09] MEDS: MUPIROCIN 2% TOPICAL OINTMENT FOR DECOLONIZATION NS SCH ×3 (00:25→21:06)
[2019-11-09] MEDS: CHLORHEXIDINE GLUCONATE 4% CLEANSER FOR DECOLONIZATION TP SCH ×2 (00:25→21:16)
[2019-11-09 00:38] LABS: ARTERIAL BLD GAS O2 SATURATION 99.4 % (95-98); ARTERIAL BLOOD GAS BASE EXCESS -6.1 meq/l (-2-2); ARTERIAL BLOOD GAS PCO2 30.4 mmHg (35-45); ARTERIAL BLOOD GAS pH 7.38 (7.35-7.45)
[2019-11-09] MEDS: methylPREDNISolone NA SUCC 40 MG/1 ML VIAL IVPUSH SCH ×5 (00:38→22:43)
[2019-11-09 00:40] LABS: ARTERIAL BLOOD GAS PO2 212 mmHg (80-100)
[2019-11-09] MEDS ORDERED: PIPERACILLIN/TAZOB 4.5 GM 4.5 GM in DEXTROSE 5%-WATER 100 ML IVPB SCH (03:00)
[2019-11-09] MEDS: ALBUTEROL SO4 2.5/IPRATROPIUM 0.5 INH SOL 3 ML VIAL.NEB. NEB SCH ×6 (05:20→21:14)
[2019-11-09 07:37] LABS: EOS % 2.5 % (0-4.5); HEMATOCRIT 40.2 % (32.4-45.2); HEMOGLOBIN 13.4 GM/dL (10.7-15.3); LYMPH % 3.8 % (8-40); MCH 32.8 pg (25.7-33.7); MCHC 33.3 g/dl (32.0-36.0); MEAN CELL VOLUME 98.5 fl (80-96); MEAN PLT VOLUME 8.2 fl (7.5-11.1); MONO % 18.8 % (3.8-10.2); NEUT % 74.9 % (42.8-82.8); PLATELET COUNT 229 K/MM3 (134-434); RBC 4.08 M/mm3 (3.60-5.2); RDW 13.7 % (11.6-15.6); WHITE BLOOD COUNT 6.6 K/mm3 (4.0-10.0)
[2019-11-09 08:12] LABS: ALBUMIN 3.4 g/dl (3.4-5.0); BILIRUBIN,TOTAL 0.3 mg/dL (0.2-1); BLOOD UREA NITROGEN 15.4 mg/dL (7-18); CALCIUM 8.4 mg/dL (8.5-10.1); CREATININE 0.9 mg/dL (0.55-1.3); MAGNESIUM 2.5 mg/dL (1.8-2.4); PHOSPHOROUS 4.4 mg/dL (2.5-4.9); POTASSIUM 3.9 mmol/L (3.5-5.1); TOT PROT 6.7 g/dl (6.4-8.2)
--- NOTE | 2019-11-09 09:15 | PN ---
Physical Exam: SUBJECTIVE: Patient seen and examined at bedside- patient states she feels her breathing is better however she had an episode of respiratory distress at around 5 am which required her to receive a treatment and post treatment feels much better; she denies any CP/N/V fevers or chills OBJECTIVE: Vital Signs Period Temp Pulse Resp BP Sys/Gar Pulse Ox Last 24 Hr 97.6 F-98.6 F 96-140 21-35 94-149/71-106 93-100 GENERAL: The patient is awake, alert, and fully oriented, on BIPAP breathing comfortably EYES:PEERLA; EOMI; no scleral icterus. NECK: no JVD; no lymphadenopathy LUNGS:on BIPAP- expiratory wheezes appreciated B/L. HEART: tahcycardic; regular rhythm , S1, S2 without murmur, rub or gallop. ABDOMEN: Soft,NT/ND +BS in all 4 quadrants EXTREMITIES: 2+ pulses, warm, well-perfused, no edema. PSYCH: Normal mood, normal affect. SKIN: Warm, dry, normal turgor, no rashes or lesions noted Laboratory Results - last 24 hr 11/08/19 11/08/19 11/08/19 18:50 18:50 18:50 WBC 14.0 H RBC 4.31 Hgb 14.1 Hct 42.9 MCV 99.4 H MCH 32.6 MCHC 32.8 RDW 14.0 Plt Count 274 MPV 8.0 Absolute Neuts (auto) 7.4 Neutrophils % 52.8 Lymphocytes % 37.8 Monocytes % 7.9 Eosinophils % 0.3 Basophils % 1.2 Nucleated RBC % 0 PT with INR 10.30 INR 0.87 PTT (Actin FS) 29.9 Anticoagulation Therapy Puncture Site ABG pH ABG pCO2 at Pt Temp ABG pO2 at Pt Temp ABG HCO3 ABG O2 Sat (Measured) ABG O2 Content ABG Base Excess Noah Test VBG pH POC VBG pCO2 POC VBG pO2 VBG HCO3 VBG O2 Sat (Grzegorz) VBG Base Excess Carboxyhemoglobin Methemoglobin O2 Delivery Device Oxygen Flow Rate Vent Mode Vent Rate Mechanical Rate Pressure Support Vent Sodium Potassium Chloride Carbon Dioxide Anion Gap BUN Creatinine Est GFR (CKD-EPI)AfAm Est GFR (CKD-EPI)NonAf Random Glucose Lactic Acid Calcium Phosphorus Magnesium Total Bilirubin AST ALT Alkaline Phosphatase Troponin I Cancelled Total Protein Albumin Urine Color Urine Appearance Urine pH Ur Specific [place] Urine Protein Urine Glucose (UA) Urine Ketones Urine Blood Urine Nitrite Urine Bilirubin Urine Urobilinogen Ur Leukocyte Esterase Urine WBC (Auto) Urine RBC (Auto) Urine Casts (Auto) U Pathogenic Cast Auto U Epithel Cells (Auto) Urine Bacteria (Auto) Urine Yeast (Auto) Influenza A (Rapid) Influenza B (Rapid) 11/08/19 11/08/19 11/08/19 18:50 18:50 18:50 WBC RBC Hgb Hct MCV MCH MCHC RDW Plt Count MPV Absolute Neuts (auto) Neutrophils % Lymphocytes % Monocytes % Eosinophils % Basophils % Nucleated RBC % PT with INR INR PTT (Actin FS) Anticoagulation Therapy Puncture Site ABG pH ABG pCO2 at Pt Temp ABG pO2 at Pt Temp ABG HCO3 ABG O2 Sat (Measured) ABG O2 Content ABG Base Excess Noah Test VBG pH 7.14 L* POC VBG pCO2 62.0 H POC VBG pO2 241 H VBG HCO3 20.2 L VBG O2 Sat (Grzegorz) 99.0 H VBG Base Excess -9.6 L Carboxyhemoglobin Methemoglobin O2 Delivery Device Oxygen Flow Rate Vent Mode Vent Rate Mechanical Rate Pressure Support Vent Sodium Cancelled Potassium Cancelled Chloride Cancelled Carbon Dioxide Cancelled Anion Gap Cancelled BUN Cancelled Creatinine Cancelled Est GFR (CKD-EPI)AfAm Cancelled Est GFR (CKD-EPI)NonAf Cancelled Random Glucose Cancelled Lactic Acid 1.7 Calcium Cancelled Phosphorus Magnesium Total Bilirubin Cancelled AST Cancelled ALT Cancelled Alkaline Phosphatase Cancelled Troponin I Total Protein Cancelled Albumin Cancelled Urine Color Urine Appearance Urine pH Ur Specific [place] Urine Protein Urine Glucose (UA) Urine Ketones Urine Blood Urine Nitrite Urine Bilirubin Urine Urobilinogen Ur Leukocyte Esterase Urine WBC (Auto) Urine RBC (Auto) Urine Casts (Auto) U Pathogenic Cast Auto U Epithel Cells (Auto) Urine Bacteria (Auto) Urine Yeast (Auto) Influenza A (Rapid) Influenza B (Rapid) 11/08/19 11/08/19 11/08/19 19:53 19:53 20:05 WBC RBC Hgb Hct MCV MCH MCHC RDW Plt Count MPV Absolute Neuts (auto) Neutrophils % Lymphocytes % Monocytes % Eosinophils % Basophils % Nucleated RBC % PT with INR INR PTT (Actin FS) Anticoagulation Therapy Puncture Site ABG pH ABG pCO2 at Pt Temp ABG pO2 at Pt Temp ABG HCO3 ABG O2 Sat (Measured) ABG O2 Content ABG Base Excess Noah Test VBG pH POC VBG pCO2 POC VBG pO2 VBG HCO3 VBG O2 Sat (Grzegorz) VBG Base Excess Carboxyhemoglobin Methemoglobin O2 Delivery Device Oxygen Flow Rate Vent Mode Vent Rate Mechanical Rate Pressure Support Vent Sodium 135 L Potassium 3.6 Chloride 103 Carbon Dioxide 19 L Anion Gap 13 BUN 10.0 Creatinine 1.0 Est GFR (CKD-EPI)AfAm 66.57 Est GFR (CKD-EPI)NonAf 57.44 Random Glucose 184 H Lactic Acid Calcium 8.4 L Phosphorus Magnesium Total Bilirubin 0.4 AST 39 H ALT 39 Alkaline Phosphatase 78 Troponin I 0.43 H Total Protein 7.4 Albumin 4.0 Urine Color Urine Appearance Urine pH Ur Specific [place] Urine Protein Urine Glucose (UA) Urine Ketones Urine Blood Urine Nitrite Urine Bilirubin Urine Urobilinogen Ur Leukocyte Esterase Urine WBC (Auto) Urine RBC (Auto) Urine Casts (Auto) U Pathogenic Cast Auto U Epithel Cells (Auto) Urine Bacteria (Auto) Urine Yeast (Auto) Influenza A (Rapid) Negative Influenza B (Rapid) Negative 11/08/19 11/08/19 11/08/19 20:20 22:46 23:01 WBC RBC Hgb Hct MCV MCH MCHC RDW Plt Count MPV Absolute Neuts (auto) Neutrophils % Lymphocytes % Monocytes % Eosinophils % Basophils % Nucleated RBC % PT with INR INR PTT (Actin FS) Anticoagulation Therapy No Result Required. Puncture Site Right radial ABG pH 7.23 L ABG pCO2 at Pt Temp 47.8 H ABG pO2 at Pt Temp 475 H ABG HCO3 19.3 L ABG O2 Sat (Measured) 99.3 H ABG O2 Content No Result Required. ABG Base Excess -8.2 L Noah Test Positive VBG pH POC VBG pCO2 POC VBG pO2 VBG HCO3 VBG O2 Sat (Grzegorz) VBG Base Excess Carboxyhemoglobin < 0.5 Methemoglobin < 1.0 O2 Delivery Device No Result Required. Oxygen Flow Rate 100% Vent Mode No Result Required. Vent Rate 16 Mechanical Rate No Result Required. Pressure Support Vent No Result Required. Sodium Potassium Chloride Carbon Dioxide Anion Gap BUN Creatinine Est GFR (CKD-EPI)AfAm Est GFR (CKD-EPI)NonAf Random Glucose Lactic Acid 1.7 Calcium Phosphorus Magnesium Total Bilirubin AST ALT Alkaline Phosphatase Troponin I Total Protein Albumin Urine Color Yellow Urine Appearance Cloudy Urine pH 5.0 Ur Specific [place] 1.025 Urine Protein 2+ H Urine Glucose (UA) Negative Urine Ketones Trace Urine Blood 3+ H Urine Nitrite Negative Urine Bilirubin 1+ H Urine Urobilinogen 0.2 Ur Leukocyte Esterase 1+ H Urine WBC (Auto) 50-60 Urine RBC (Auto) 35-40 Urine Casts (Auto) 3-5 U Pathogenic Cast Auto 2-4 U Epithel Cells (Auto) Moderate Urine Bacteria (Auto) Moderate Urine Yeast (Auto) None seen Influenza A (Rapid) Influenza B (Rapid) 11/09/19 11/09/19 11/09/19 00:20 02:30 06:20 WBC RBC Hgb Hct MCV MCH MCHC RDW Plt Count MPV Absolute Neuts (auto) Neutrophils % Lymphocytes % Monocytes % Eosinophils % Basophils % Nucleated RBC % PT with INR INR PTT (Actin FS) Anticoagulation Therapy No Result Required. Puncture Site No Result Required. ABG pH 7.38 ABG pCO2 at Pt Temp 30.4 L ABG pO2 at Pt Temp 212 H ABG HCO3 17.5 L ABG O2 Sat (Measured) 99.4 H ABG O2 Content 99.4 ABG Base Excess -6.1 L Noha Test No Result Required. VBG pH POC VBG pCO2 POC VBG pO2 VBG HCO3 VBG O2 Sat (Grzegorz) VBG Base Excess Carboxyhemoglobin Methemoglobin O2 Delivery Device No Result Required. Oxygen Flow Rate No Result Required. Vent Mode No Result Required. Vent Rate No Result Required. Mechanical Rate No Result Required. Pressure Support Vent No Result Required. Sodium Potassium Chloride Carbon Dioxide Anion Gap BUN Creatinine Est GFR (CKD-EPI)AfAm Est GFR (CKD-EPI)NonAf Random Glucose Lactic Acid Calcium Phosphorus Magnesium Total Bilirubin AST ALT Alkaline Phosphatase Troponin I 0.84 H* 0.81 H* Total Protein Albumin Urine Color Urine Appearance Urine pH Ur Specific [place] Urine Protein Urine Glucose (UA) Urine Ketones Urine Blood Urine Nitrite Urine Bilirubin Urine Urobilinogen Ur Leukocyte Esterase Urine WBC (Auto) Urine RBC (Auto) Urine Casts (Auto) U Pathogenic Cast Auto U Epithel Cells (Auto) Urine Bacteria (Auto) Urine Yeast (Auto) Influenza A (Rapid) Influenza B (Rapid) 11/09/19 11/09/19 06:20 06:20 WBC 6.6 RBC 4.08 Hgb 13.4 Hct 40.2 MCV 98.5 H MCH 32.8 MCHC 33.3 RDW 13.7 Plt Count 229 MPV 8.2 Absolute Neuts (auto) 4.9 Neutrophils % 74.9 D Lymphocytes % 3.8 L D Monocytes % 18.8 H D Eosinophils % 2.5 D Basophils % 0.0 Nucleated RBC % 0 PT with INR INR PTT (Actin FS) Anticoagulation Therapy Puncture Site ABG pH ABG pCO2 at Pt Temp ABG pO2 at Pt Temp ABG HCO3 ABG O2 Sat (Measured) ABG O2 Content ABG Base Excess Noah Test VBG pH POC VBG pCO2 POC VBG pO2 VBG HCO3 VBG O2 Sat (Grzegorz) VBG Base Excess Carboxyhemoglobin Methemoglobin O2 Delivery Device Oxygen Flow Rate Vent Mode Vent Rate Mechanical Rate Pressure Support Vent Sodium 138 Potassium 3.9 Chloride 105 Carbon Dioxide 23 Anion Gap 11 BUN 15.4 Creatinine 0.9 Est GFR (CKD-EPI)AfAm 75.61 Est GFR (CKD-EPI)NonAf 65.24 Random Glucose 158 H Lactic Acid Calcium 8.4 L Phosphorus 4.4 Magnesium 2.5 H Total Bilirubin 0.3 AST 38 H ALT 35 Alkaline Phosphatase 65 Troponin I Total Protein 6.7 Albumin 3.4 Urine Color Urine Appearance Urine pH Ur Specific [place] Urine Protein Urine Glucose (UA) Urine Ketones Urine Blood Urine Nitrite Urine Bilirubin Urine Urobilinogen Ur Leukocyte Esterase Urine WBC (Auto) Urine RBC (Auto) Urine Casts (Auto) U Pathogenic Cast Auto U Epithel Cells (Auto) Urine Bacteria (Auto) Urine Yeast (Auto) Influenza A (Rapid) Influenza B (Rapid) Active Medications Generic Name Dose Route Start Last Admin Trade Name Freq PRN Reason Stop Dose Admin Albuterol/Ipratropium 1 amp 11/09/19 08:00 11/09/19 08:09 Duoneb - NEB 1 amp RQID [facility] Administration Chlorhexidine Gluconate 1 applic 11/08/19 22:00 11/09/19 00:25 Hibiclens For Decolonization - TP Not Given HS [facility] Enoxaparin Sodium 40 mg 11/08/19 21:45 11/08/19 23:07 Lovenox - SQ 40 mg DAILY [facility] Administration Azithromycin 500 mg in 250 mls @ 250 mls/hr 11/09/19 10:00 Zithromax 500mg Ivpb (Pre-Docked) IVPB DAILY [facility] Ceftriaxone Sodium 1 gm/ 50 mls @ 100 mls/hr 11/09/19 10:00 Dextrose IVPB DAILY [facility] Protocol Methylprednisolone Sodium Succinate 60 mg 11/08/19 23:00 11/09/19 05:27 Solu-Medrol - IVPUSH 60 mg Q6H [facility] Administration Mupirocin 1 applic 11/08/19 22:00 11/09/19 00:25 Bactroban Ointment (For Decolonization) - NS 11/13/19 21:59 Not Given BID [facility] Nicotine 21 mg 11/09/19 10:00 Nicoderm Patch - TD DAILY [facility] ASSESSMENT/PLAN: 68F PMH COPD, IBS, spinal disc herniation, who presents today with acute hypoxic respiratory failure secondary to COPD exacerbation. #Neuro stable; no issues mentating well on BIPAP #Cardiovascular troponemia on admission: 0.45-->0.84-->0.81 sinus tach no EKG changes echo ordered #GI history of IBS stable; no issues sodium-controlled diet #Pulm COPD exacerbation; improving on BIPAP solumedrol 60q6H standing duonebs ceftriaxone/azithromycin will transition to nasal cannula this afternoon repeat CXR in AM f/u cultures F/E/N not on fluids monitor electrolytes sodium-controlled diet dvtx ppX; lovenox Problem List - Problems (1) Acute hypoxemic respiratory failure Code(s): J96.01 - ACUTE RESPIRATORY FAILURE WITH HYPOXIA (2) COPD exacerbation Code(s): J44.1 - CHRONIC OBSTRUCTIVE PULMONARY DISEASE W (ACUTE) EXACERBATION Visit type - Emergency Visit Emergency Visit: Yes ED Registration Date: 11/08/19 Care time: The patient presented to the Emergency Department on the above date and was hospitalized for further evaluation of their emergent condition. - New Patient This patient is new to me today: Yes Date on this admission: 11/09/19 - Critical Care Critical Care patient: Yes Total Critical Care Time (in minutes): 35 Critical Care Statement: The care of this patient involved high complexity decision making to prevent further life threatening deterioration of the patient 's condition and/or to evaluate & treat vital organ system(s) failure or risk of failure. ATTENDING PHYSICIAN STATEMENT I saw and evaluated the patient. I reviewed the resident's note and discussed the case with the resident. I agree with the resident's findings and plan as documented. SUBJECTIVE: OBJECTIVE: ASSESSMENT AND PLAN:
--- NOTE | 2019-11-09 09:23 | PN ---
Teaching Attending Note Name of Resident: Viviana Bee ATTENDING PHYSICIAN STATEMENT I saw and evaluated the patient. I reviewed the resident's note and discussed the case with the resident. I agree with the resident's findings and plan as documented. SUBJECTIVE: Patient seen and examined in the ICU. Breathing feels better on NIPPV support. Had acute distress around 5AM that required additional BD TX. No CP. Intake & Output 11/06/19 11/07/19 11/08/19 11/09/19 23:59 23:59 23:59 23:59 Intake Total 600 25 Balance 600 25 Weight 149 lb 12.8 oz Last Vital Signs Temp Pulse Resp BP Pulse Ox 98.1 F 111 H 27 H 111/86 100 11/09/19 06:00 11/09/19 08:00 11/09/19 08:46 11/09/19 08:00 11/09/19 08:51 Active Medications Albuterol/Ipratropium (Duoneb -) 1 amp NEB RQID [facility] Last Admin: 11/09/19 08:09 Dose: 1 amp Chlorhexidine Gluconate (Hibiclens For Decolonization -) 1 applic TP HS [facility] Last Admin: 11/09/19 00:25 Dose: Not Given Enoxaparin Sodium (Lovenox -) 40 mg SQ DAILY [facility] Last Admin: 11/08/19 23:07 Dose: 40 mg Azithromycin (Zithromax 500mg Ivpb (Pre-Docked)) 500 mg in 250 mls @ 250 mls/ hr IVPB DAILY [facility] Ceftriaxone Sodium 1 gm/ (Dextrose) 50 mls @ 100 mls/hr IVPB DAILY [facility]; Protocol Methylprednisolone Sodium Succinate (Solu-Medrol -) 60 mg IVPUSH Q6H [facility] Last Admin: 11/09/19 05:27 Dose: 60 mg Mupirocin (Bactroban Ointment (For Decolonization) -) 1 applic NS BID [facility] Stop: 11/13/19 21:59 Last Admin: 11/09/19 00:25 Dose: Not Given Nicotine (Nicoderm Patch -) 21 mg TD DAILY [facility] GENERAL: Awake, alert, and fully oriented, NAD on NIPPV support HEAD: Normal with no signs of trauma. EYES: EOMI, sclera anicteric EARS, NOSE, THROAT: BiPAP in place. NECK: Normal range of motion, supple without lymphadenopathy, JVD, or masses. LUNGS: Slight expiratory wheezes, few scattered rhonchi HEART: Tachycardic, normal S1 and S2 without murmur, rub or gallop. ABDOMEN: Soft, nontender, not distended, normoactive bowel sounds, no guarding, no rebound, no masses. No hepatomegaly or splenomegaly. MUSCULOSKELETAL: Normal range of motion at all joints. No bony deformities or tenderness. No CVA tenderness. UPPER EXTREMITIES: 2+ pulses, warm, well-perfused. No cyanosis. No clubbing. Cap refill <2 seconds. No peripheral edema. LOWER EXTREMITIES: 2+ pulses, warm, well-perfused. No calf tenderness. No peripheral edema. NEUROLOGICAL: Non-focal PSYCHIATRIC: Cooperative. Good eye contact. Appropriate mood and affect. SKIN: Warm, dry, normal turgor, no rashes or lesions noted. Laboratory Results - last 24 hr 11/08/19 11/08/19 11/08/19 18:50 18:50 18:50 WBC 14.0 H RBC 4.31 Hgb 14.1 Hct 42.9 MCV 99.4 H MCH 32.6 MCHC 32.8 RDW 14.0 Plt Count 274 MPV 8.0 Absolute Neuts (auto) 7.4 Neutrophils % 52.8 Lymphocytes % 37.8 Monocytes % 7.9 Eosinophils % 0.3 Basophils % 1.2 Nucleated RBC % 0 PT with INR 10.30 INR 0.87 PTT (Actin FS) 29.9 Anticoagulation Therapy Puncture Site ABG pH ABG pCO2 at Pt Temp ABG pO2 at Pt Temp ABG HCO3 ABG O2 Sat (Measured) ABG O2 Content ABG Base Excess Noah Test VBG pH POC VBG pCO2 POC VBG pO2 VBG HCO3 VBG O2 Sat (Grzegorz) VBG Base Excess Carboxyhemoglobin Methemoglobin O2 Delivery Device Oxygen Flow Rate Vent Mode Vent Rate Mechanical Rate Pressure Support Vent Sodium Potassium Chloride Carbon Dioxide Anion Gap BUN Creatinine Est GFR (CKD-EPI)AfAm Est GFR (CKD-EPI)NonAf Random Glucose Lactic Acid Calcium Phosphorus Magnesium Total Bilirubin AST ALT Alkaline Phosphatase Troponin I Cancelled Total Protein Albumin Urine Color Urine Appearance Urine pH Ur Specific [place] Urine Protein Urine Glucose (UA) Urine Ketones Urine Blood Urine Nitrite Urine Bilirubin Urine Urobilinogen Ur Leukocyte Esterase Urine WBC (Auto) Urine RBC (Auto) Urine Casts (Auto) U Pathogenic Cast Auto U Epithel Cells (Auto) Urine Bacteria (Auto) Urine Yeast (Auto) Influenza A (Rapid) Influenza B (Rapid) 11/08/19 11/08/19 11/08/19 18:50 18:50 18:50 WBC RBC Hgb Hct MCV MCH MCHC RDW Plt Count MPV Absolute Neuts (auto) Neutrophils % Lymphocytes % Monocytes % Eosinophils % Basophils % Nucleated RBC % PT with INR INR PTT (Actin FS) Anticoagulation Therapy Puncture Site ABG pH ABG pCO2 at Pt Temp ABG pO2 at Pt Temp ABG HCO3 ABG O2 Sat (Measured) ABG O2 Content ABG Base Excess Noah Test VBG pH 7.14 L* POC VBG pCO2 62.0 H POC VBG pO2 241 H VBG HCO3 20.2 L VBG O2 Sat (Grzegorz) 99.0 H VBG Base Excess -9.6 L Carboxyhemoglobin Methemoglobin O2 Delivery Device Oxygen Flow Rate Vent Mode Vent Rate Mechanical Rate Pressure Support Vent Sodium Cancelled Potassium Cancelled Chloride Cancelled Carbon Dioxide Cancelled Anion Gap Cancelled BUN Cancelled Creatinine Cancelled Est GFR (CKD-EPI)AfAm Cancelled Est GFR (CKD-EPI)NonAf Cancelled Random Glucose Cancelled Lactic Acid 1.7 Calcium Cancelled Phosphorus Magnesium Total Bilirubin Cancelled AST Cancelled ALT Cancelled Alkaline Phosphatase Cancelled Troponin I Total Protein Cancelled Albumin Cancelled Urine Color Urine Appearance Urine pH Ur Specific [place] Urine Protein Urine Glucose (UA) Urine Ketones Urine Blood Urine Nitrite Urine Bilirubin Urine Urobilinogen Ur Leukocyte Esterase Urine WBC (Auto) Urine RBC (Auto) Urine Casts (Auto) U Pathogenic Cast Auto U Epithel Cells (Auto) Urine Bacteria (Auto) Urine Yeast (Auto) Influenza A (Rapid) Influenza B (Rapid) 11/08/19 11/08/19 11/08/19 19:53 19:53 20:05 WBC RBC Hgb Hct MCV MCH MCHC RDW Plt Count MPV Absolute Neuts (auto) Neutrophils % Lymphocytes % Monocytes % Eosinophils % Basophils % Nucleated RBC % PT with INR INR PTT (Actin FS) Anticoagulation Therapy Puncture Site ABG pH ABG pCO2 at Pt Temp ABG pO2 at Pt Temp ABG HCO3 ABG O2 Sat (Measured) ABG O2 Content ABG Base Excess Noah Test VBG pH POC VBG pCO2 POC VBG pO2 VBG HCO3 VBG O2 Sat (Grzegorz) VBG Base Excess Carboxyhemoglobin Methemoglobin O2 Delivery Device Oxygen Flow Rate Vent Mode Vent Rate Mechanical Rate Pressure Support Vent Sodium 135 L Potassium 3.6 Chloride 103 Carbon Dioxide 19 L Anion Gap 13 BUN 10.0 Creatinine 1.0 Est GFR (CKD-EPI)AfAm 66.57 Est GFR (CKD-EPI)NonAf 57.44 Random Glucose 184 H Lactic Acid Calcium 8.4 L Phosphorus Magnesium Total Bilirubin 0.4 AST 39 H ALT 39 Alkaline Phosphatase 78 Troponin I 0.43 H Total Protein 7.4 Albumin 4.0 Urine Color Urine Appearance Urine pH Ur Specific [place] Urine Protein Urine Glucose (UA) Urine Ketones Urine Blood Urine Nitrite Urine Bilirubin Urine Urobilinogen Ur Leukocyte Esterase Urine WBC (Auto) Urine RBC (Auto) Urine Casts (Auto) U Pathogenic Cast Auto U Epithel Cells (Auto) Urine Bacteria (Auto) Urine Yeast (Auto) Influenza A (Rapid) Negative Influenza B (Rapid) Negative 11/08/19 11/08/19 11/08/19 20:20 22:46 23:01 WBC RBC Hgb Hct MCV MCH MCHC RDW Plt Count MPV Absolute Neuts (auto) Neutrophils % Lymphocytes % Monocytes % Eosinophils % Basophils % Nucleated RBC % PT with INR INR PTT (Actin FS) Anticoagulation Therapy No Result Required. Puncture Site Right radial ABG pH 7.23 L ABG pCO2 at Pt Temp 47.8 H ABG pO2 at Pt Temp 475 H ABG HCO3 19.3 L ABG O2 Sat (Measured) 99.3 H ABG O2 Content No Result Required. ABG Base Excess -8.2 L Noah Test Positive VBG pH POC VBG pCO2 POC VBG pO2 VBG HCO3 VBG O2 Sat (Grzegorz) VBG Base Excess Carboxyhemoglobin < 0.5 Methemoglobin < 1.0 O2 Delivery Device No Result Required. Oxygen Flow Rate 100% Vent Mode No Result Required. Vent Rate 16 Mechanical Rate No Result Required. Pressure Support Vent No Result Required. Sodium Potassium Chloride Carbon Dioxide Anion Gap BUN Creatinine Est GFR (CKD-EPI)AfAm Est GFR (CKD-EPI)NonAf Random Glucose Lactic Acid 1.7 Calcium Phosphorus Magnesium Total Bilirubin AST ALT Alkaline Phosphatase Troponin I Total Protein Albumin Urine Color Yellow Urine Appearance Cloudy Urine pH 5.0 Ur Specific [place] 1.025 Urine Protein 2+ H Urine Glucose (UA) Negative Urine Ketones Trace Urine Blood 3+ H Urine Nitrite Negative Urine Bilirubin 1+ H Urine Urobilinogen 0.2 Ur Leukocyte Esterase 1+ H Urine WBC (Auto) 50-60 Urine RBC (Auto) 35-40 Urine Casts (Auto) 3-5 U Pathogenic Cast Auto 2-4 U Epithel Cells (Auto) Moderate Urine Bacteria (Auto) Moderate Urine Yeast (Auto) None seen Influenza A (Rapid) Influenza B (Rapid) 11/09/19 11/09/19 11/09/19 00:20 02:30 06:20 WBC RBC Hgb Hct MCV MCH MCHC RDW Plt Count MPV Absolute Neuts (auto) Neutrophils % Lymphocytes % Monocytes % Eosinophils % Basophils % Nucleated RBC % PT with INR INR PTT (Actin FS) Anticoagulation Therapy No Result Required. Puncture Site No Result Required. ABG pH 7.38 ABG pCO2 at Pt Temp 30.4 L ABG pO2 at Pt Temp 212 H ABG HCO3 17.5 L ABG O2 Sat (Measured) 99.4 H ABG O2 Content 99.4 ABG Base Excess -6.1 L Noah Test No Result Required. VBG pH POC VBG pCO2 POC VBG pO2 VBG HCO3 VBG O2 Sat (Grzegorz) VBG Base Excess Carboxyhemoglobin Methemoglobin O2 Delivery Device No Result Required. Oxygen Flow Rate No Result Required. Vent Mode No Result Required. Vent Rate No Result Required. Mechanical Rate No Result Required. Pressure Support Vent No Result Required. Sodium Potassium Chloride Carbon Dioxide Anion Gap BUN Creatinine Est GFR (CKD-EPI)AfAm Est GFR (CKD-EPI)NonAf Random Glucose Lactic Acid Calcium Phosphorus Magnesium Total Bilirubin AST ALT Alkaline Phosphatase Troponin I 0.84 H* 0.81 H* Total Protein Albumin Urine Color Urine Appearance Urine pH Ur Specific [place] Urine Protein Urine Glucose (UA) Urine Ketones Urine Blood Urine Nitrite Urine Bilirubin Urine Urobilinogen Ur Leukocyte Esterase Urine WBC (Auto) Urine RBC (Auto) Urine Casts (Auto) U Pathogenic Cast Auto U Epithel Cells (Auto) Urine Bacteria (Auto) Urine Yeast (Auto) Influenza A (Rapid) Influenza B (Rapid) 11/09/19 11/09/19 06:20 06:20 WBC 6.6 RBC 4.08 Hgb 13.4 Hct 40.2 MCV 98.5 H MCH 32.8 MCHC 33.3 RDW 13.7 Plt Count 229 MPV 8.2 Absolute Neuts (auto) 4.9 Neutrophils % 74.9 D Lymphocytes % 3.8 L D Monocytes % 18.8 H D Eosinophils % 2.5 D Basophils % 0.0 Nucleated RBC % 0 PT with INR INR PTT (Actin FS) Anticoagulation Therapy Puncture Site ABG pH ABG pCO2 at Pt Temp ABG pO2 at Pt Temp ABG HCO3 ABG O2 Sat (Measured) ABG O2 Content ABG Base Excess Noah Test VBG pH POC VBG pCO2 POC VBG pO2 VBG HCO3 VBG O2 Sat (Grzegorz) VBG Base Excess Carboxyhemoglobin Methemoglobin O2 Delivery Device Oxygen Flow Rate Vent Mode Vent Rate Mechanical Rate Pressure Support Vent Sodium 138 Potassium 3.9 Chloride 105 Carbon Dioxide 23 Anion Gap 11 BUN 15.4 Creatinine 0.9 Est GFR (CKD-EPI)AfAm 75.61 Est GFR (CKD-EPI)NonAf 65.24 Random Glucose 158 H Lactic Acid Calcium 8.4 L Phosphorus 4.4 Magnesium 2.5 H Total Bilirubin 0.3 AST 38 H ALT 35 Alkaline Phosphatase 65 Troponin I Total Protein 6.7 Albumin 3.4 Urine Color Urine Appearance Urine pH Ur Specific [place] Urine Protein Urine Glucose (UA) Urine Ketones Urine Blood Urine Nitrite Urine Bilirubin Urine Urobilinogen Ur Leukocyte Esterase Urine WBC (Auto) Urine RBC (Auto) Urine Casts (Auto) U Pathogenic Cast Auto U Epithel Cells (Auto) Urine Bacteria (Auto) Urine Yeast (Auto) Influenza A (Rapid) Influenza B (Rapid) ASSESSMENT/PLAN: Acute Hypoxic Respiratory Failure due to AE of COPD R/O PNA: Low suspicion IBS (+) Troponin likely due to demand ischemia BD TX Medrol NIPPV support Empiric ABX: Can likely DC once cultures are (-) VTE prophylaxis ICU monitoring Dr Harris
[2019-11-09] MEDS ORDERED: cefTRIAXone SODIUM 1 GM VIAL ONE (09:36)
[2019-11-09] MEDS ORDERED: DEXTROSE 5%-WATER - 50 ML IVPB ONE (09:36)
[2019-11-09] MEDS: CEFTRIAXONE 1 GM in DEXTROSE 5%-WATER - 50 ML IVPB SCH (10:28)
[2019-11-09] MEDS: NICOTINE 21 MG/24 HOURS TOPICAL PATCH TD SCH (10:30)
[2019-11-09] MEDS: ENOXAPARIN NA (PORCINE) 40 MG/0.4 ML DISP.SYRIN SQ SCH (10:30)
[2019-11-09] MEDS: AZITHROMYCIN IVPB 500 MG/250 ML BAG IVPB SCH (10:34)
[2019-11-09] MEDS: guaiFENesin 200 MG/10 ML 10 ML UNIT-DOSE CUPS PO PRN ×2 (11:09→20:00)
[2019-11-09] MEDS ORDERED: PT OWN MED DRAWER 7, Y5N ONE ×2 (13:41→17:10)
--- NOTE | 2019-11-09 17:03 | EKG ---
Test Reason : Blood Pressure : / mmHG Vent. Rate : 126 BPM Atrial Rate : 126 BPM P-R Int : 142 ms QRS Dur : 094 ms QT Int : 316 ms P-R-T Axes : 080 -04 079 degrees QTc Int : 457 ms SINUS TACHYCARDIA POSSIBLE LEFT ATRIAL ENLARGEMENT SEPTAL INFARCT , AGE UNDETERMINED ABNORMAL ECG NO PREVIOUS ECGS AVAILABLE Confirmed by ANGELICA ZAPATA MD ([id number] on 11/09/2019 5:03:27 PM Referred By: Confirmed By:ANGELICA ZAPATA MD
[2019-11-09] MEDS ORDERED: ALPRAZolam 0.25 MG TABLET PO ONE (20:02)
--- NOTE | 2019-11-09 20:49 | PN ---
Physical Exam: 58 F h/o COPD never intubated, not on O2, irritable bowel syndrome, presents with complaint of shortness of breath. Patient endorses symptoms have been ongoing for past week. Symptoms associated with nonproductive cough. Patient saw an urgent care physician yesterday who diagnosed her with sinus infection, and prescribed amoxicillin, status didn't improve and SOB worsened. Patient placed on BiPAP for COPDE with CO2 retention with markedly improved ABG but still feels breathless and anxious. PE VSS GA mildly tachypneic, no respiratory M use, AAox3, speaking in full sentences HEENT NC/AT, EOMI, no JVD, BiPAP+ Chest coarse BS b/l, faint wheezing CVS S1, S2+, RRR ABd Soft, NT, ND Ext No LE edema Vital Signs - 24 hr 11/08/19 11/08/19 11/08/19 20:54 23:13 23:18 Temperature 98.6 F Pulse Rate Pulse Rate [ 115 H Right Radial] Respiratory 22 H Rate Blood Pressure Blood Pressure 116/73 [Right Arm] O2 Sat by Pulse 100 100 Oximetry (%) 11/08/19 11/09/19 11/09/19 23:53 00:03 00:15 Temperature 97.8 F Pulse Rate 106 H Pulse Rate [ Right Radial] Respiratory 21 H Rate Blood Pressure 94/71 Blood Pressure [Right Arm] O2 Sat by Pulse 100 100 100 Oximetry (%) 11/09/19 11/09/19 11/09/19 01:00 02:18 03:00 Temperature 97.6 F Pulse Rate 96 H 98 H Pulse Rate [ Right Radial] Respiratory 21 H 24 H Rate Blood Pressure 134/89 101/73 Blood Pressure [Right Arm] O2 Sat by Pulse 100 Oximetry (%) 11/09/19 11/09/19 11/09/19 04:00 06:00 06:30 Temperature 98.1 F Pulse Rate 100 H 119 H Pulse Rate [ Right Radial] Respiratory 21 H 27 H Rate Blood Pressure 106/81 107/81 Blood Pressure [Right Arm] O2 Sat by Pulse 100 Oximetry (%) 11/09/19 11/09/19 11/09/19 08:00 08:08 08:46 Temperature Pulse Rate 111 H Pulse Rate [ Right Radial] Respiratory 24 H 27 H Rate Blood Pressure 111/86 Blood Pressure [Right Arm] O2 Sat by Pulse 100 100 Oximetry (%) 11/09/19 11/09/19 11/09/19 08:51 10:00 12:00 Temperature 97.8 F Pulse Rate 116 H 114 H Pulse Rate [ Right Radial] Respiratory 25 H 23 H Rate Blood Pressure 101/69 102/78 Blood Pressure [Right Arm] O2 Sat by Pulse 100 Oximetry (%) 11/09/19 11/09/19 11/09/19 12:03 14:00 16:00 Temperature 98.4 F Pulse Rate 105 H 104 H Pulse Rate [ Right Radial] Respiratory 24 H 24 H Rate Blood Pressure 98/76 107/77 Blood Pressure [Right Arm] O2 Sat by Pulse 100 Oximetry (%) 11/09/19 11/09/19 11/09/19 17:05 18:00 19:52 Temperature 98.2 F Pulse Rate 111 H Pulse Rate [ Right Radial] Respiratory 25 H Rate Blood Pressure 98/75 Blood Pressure [Right Arm] O2 Sat by Pulse 100 100 Oximetry (%) 11/09/19 11/09/19 20:00 20:06 Temperature Pulse Rate 109 H Pulse Rate [ Right Radial] Respiratory 25 H Rate Blood Pressure 114/88 Blood Pressure [Right Arm] O2 Sat by Pulse 100 Oximetry (%) Laboratory Results - last 24 hr 11/08/19 11/08/19 11/08/19 20:05 20:20 22:46 WBC RBC Hgb Hct MCV MCH MCHC RDW Plt Count MPV Absolute Neuts (auto) Neutrophils % Lymphocytes % Monocytes % Eosinophils % Basophils % Nucleated RBC % Anticoagulation Therapy Puncture Site Right radial ABG pH 7.23 L ABG pCO2 at Pt Temp 47.8 H ABG pO2 at Pt Temp 475 H ABG HCO3 19.3 L ABG O2 Sat (Measured) 99.3 H ABG O2 Content No Result Required. ABG Base Excess -8.2 L Noah Test Positive Carboxyhemoglobin < 0.5 Methemoglobin < 1.0 O2 Delivery Device Oxygen Flow Rate 100% Vent Mode Vent Rate 16 Mechanical Rate Pressure Support Vent Sodium Potassium Chloride Carbon Dioxide Anion Gap BUN Creatinine Est GFR (CKD-EPI)AfAm Est GFR (CKD-EPI)NonAf Random Glucose Lactic Acid Calcium Phosphorus Magnesium Total Bilirubin AST ALT Alkaline Phosphatase Troponin I Total Protein Albumin Urine Color Yellow Urine Appearance Cloudy Urine pH 5.0 Ur Specific [place] 1.025 Urine Protein 2+ H Urine Glucose (UA) Negative Urine Ketones Trace Urine Blood 3+ H Urine Nitrite Negative Urine Bilirubin 1+ H Urine Urobilinogen 0.2 Ur Leukocyte Esterase 1+ H Urine WBC (Auto) 50-60 Urine RBC (Auto) 35-40 Urine Casts (Auto) 3-5 U Pathogenic Cast Auto 2-4 U Epithel Cells (Auto) Moderate Urine Bacteria (Auto) Moderate Urine Yeast (Auto) None seen Influenza A (Rapid) Negative Influenza B (Rapid) Negative 11/08/19 11/09/19 11/09/19 23:01 00:20 02:30 WBC RBC Hgb Hct MCV MCH MCHC RDW Plt Count MPV Absolute Neuts (auto) Neutrophils % Lymphocytes % Monocytes % Eosinophils % Basophils % Nucleated RBC % Anticoagulation Therapy No Result Required. Puncture Site No Result Required. ABG pH 7.38 ABG pCO2 at Pt Temp 30.4 L ABG pO2 at Pt Temp 212 H ABG HCO3 17.5 L ABG O2 Sat (Measured) 99.4 H ABG O2 Content 99.4 ABG Base Excess -6.1 L Noah Test No Result Required. Carboxyhemoglobin Methemoglobin O2 Delivery Device No Result Required. Oxygen Flow Rate No Result Required. Vent Mode No Result Required. Vent Rate No Result Required. Mechanical Rate No Result Required. Pressure Support Vent No Result Required. Sodium Potassium Chloride Carbon Dioxide Anion Gap BUN Creatinine Est GFR (CKD-EPI)AfAm Est GFR (CKD-EPI)NonAf Random Glucose Lactic Acid 1.7 Calcium Phosphorus Magnesium Total Bilirubin AST ALT Alkaline Phosphatase Troponin I 0.84 H* Total Protein Albumin Urine Color Urine Appearance Urine pH Ur Specific [place] Urine Protein Urine Glucose (UA) Urine Ketones Urine Blood Urine Nitrite Urine Bilirubin Urine Urobilinogen Ur Leukocyte Esterase Urine WBC (Auto) Urine RBC (Auto) Urine Casts (Auto) U Pathogenic Cast Auto U Epithel Cells (Auto) Urine Bacteria (Auto) Urine Yeast (Auto) Influenza A (Rapid) Influenza B (Rapid) 11/09/19 11/09/19 11/09/19 06:20 06:20 06:20 WBC 6.6 RBC 4.08 Hgb 13.4 Hct 40.2 MCV 98.5 H MCH 32.8 MCHC 33.3 RDW 13.7 Plt Count 229 MPV 8.2 Absolute Neuts (auto) 4.9 Neutrophils % 74.9 D Lymphocytes % 3.8 L D Monocytes % 18.8 H D Eosinophils % 2.5 D Basophils % 0.0 Nucleated RBC % 0 Anticoagulation Therapy Puncture Site ABG pH ABG pCO2 at Pt Temp ABG pO2 at Pt Temp ABG HCO3 ABG O2 Sat (Measured) ABG O2 Content ABG Base Excess Noah Test Carboxyhemoglobin Methemoglobin O2 Delivery Device Oxygen Flow Rate Vent Mode Vent Rate Mechanical Rate Pressure Support Vent Sodium 138 Potassium 3.9 Chloride 105 Carbon Dioxide 23 Anion Gap 11 BUN 15.4 Creatinine 0.9 Est GFR (CKD-EPI)AfAm 75.61 Est GFR (CKD-EPI)NonAf 65.24 Random Glucose 158 H Lactic Acid Calcium 8.4 L Phosphorus 4.4 Magnesium 2.5 H Total Bilirubin 0.3 AST 38 H ALT 35 Alkaline Phosphatase 65 Troponin I 0.81 H* Total Protein 6.7 Albumin 3.4 Urine Color Urine Appearance Urine pH Ur Specific [place] Urine Protein Urine Glucose (UA) Urine Ketones Urine Blood Urine Nitrite Urine Bilirubin Urine Urobilinogen Ur Leukocyte Esterase Urine WBC (Auto) Urine RBC (Auto) Urine Casts (Auto) U Pathogenic Cast Auto U Epithel Cells (Auto) Urine Bacteria (Auto) Urine Yeast (Auto) Influenza A (Rapid) Influenza B (Rapid) Current Medications Generic Name Dose Route Start Last Admin Trade Name Freq PRN Reason Stop Dose Admin Albuterol/Ipratropium 1 amp 11/09/19 08:00 11/09/19 16:55 Duoneb - NEB 1 amp RQID BART Administration Chlorhexidine Gluconate 1 applic 11/08/19 22:00 11/09/19 00:25 Hibiclens For Decolonization - TP Not Given HS BART Enoxaparin Sodium 40 mg 11/08/19 21:45 11/09/19 10:30 Lovenox - SQ 40 mg DAILY B[facility] Administration Guaifenesin 10 ml 11/09/19 10:34 11/09/19 11:09 Robitussin - PO 10 ml Q6H PRN Administration COUGH Azithromycin 500 mg in 250 mls @ 250 mls/hr 11/09/19 10:00 11/09/19 10:34 Zithromax 500mg Ivpb (Pre-Docked) IVPB 250 mls/hr DAILY BART Administration Ceftriaxone Sodium 1 gm/ 50 mls @ 100 mls/hr 11/09/19 10:00 11/09/19 10:28 Dextrose IVPB 100 mls/hr DAILY BART Administration Protocol Methylprednisolone Sodium Succinate 60 mg 11/08/19 23:00 11/09/19 17:17 Solu-Medrol - IVPUSH 60 mg Q6H BART Administration Mupirocin 1 applic 11/08/19 22:00 11/09/19 17:18 Bactroban Ointment (For Decolonization) - NS 11/13/19 21:59 Not Given BID BART Nicotine 21 mg 11/09/19 10:00 11/09/19 10:30 Nicoderm Patch - TD 21 mg DAILY BART Administration 58 year old female with history of COPD (negative prior intubation), irritable bowel syndrome, presents with complaint of shortness of breath. Admitted for acute COPD exacerbation requiring BiPAP likely due to anxious state. COPD exacerbation, cont. nebs, IV steroids, abx for CAP, BiPAP PRN consider low dose anxiolytic for anxiety component as this is driving her SOB symptoms Keep in ICU monitor breathing closely, low threshold for intubation ICU consult: Dr. Harris Troponinemia Troponin 0.43 -> 0.84 now 0.81, trending down, likely demand secondary to COPD exacerbation. Currently patient is free of chest pain. EKG reveals sinus tachycardia Cardio consult it trops trend up and patient develops CP Nicotine dependence Counselled regarding smoking cessation Nicotine patch 21mg transdermal daily. FEN No IV fluids indicated Follow BMP Regular diet Prophylaxis -Lovenox 40mg subq daily Visit type - Emergency Visit Emergency Visit: Yes ED Registration Date: 11/08/19 Care time: The patient presented to the Emergency Department on the above date and was hospitalized for further evaluation of their emergent condition. - New Patient This patient is new to me today: Yes Date on this admission: 11/09/19 - Critical Care Critical Care patient: Yes Total Critical Care Time (in minutes): 35 Critical Care Statement: The care of this patient involved high complexity decision making to prevent further life threatening deterioration of the patient 's condition and/or to evaluate & treat vital organ system(s) failure or risk of failure. - Discharge Referral Referred to [facility] Med P.C.: No
[2019-11-10] MEDS: methylPREDNISolone NA SUCC 40 MG/1 ML VIAL IVPUSH SCH ×4 (04:17→21:59)
[2019-11-10 06:28] LABS: BASO % 0.2 % (0-2.0); HEMATOCRIT 40.8 % (32.4-45.2); HEMOGLOBIN 13.7 GM/dL (10.7-15.3); LYMPH % 7.7 % (8-40); MCH 32.6 pg (25.7-33.7); MCHC 33.5 g/dl (32.0-36.0); MEAN CELL VOLUME 97.3 fl (80-96); MEAN PLT VOLUME 7.9 fl (7.5-11.1); MONO % 7.5 % (3.8-10.2); NEUT % 84.6 % (42.8-82.8); PLATELET COUNT 259 K/MM3 (134-434); RBC 4.19 M/mm3 (3.60-5.2); WHITE BLOOD COUNT 11.9 K/mm3 (4.0-10.0)
[2019-11-10 07:11] LABS: ALBUMIN 3.4 g/dl (3.4-5.0); BILIRUBIN,TOTAL 0.3 mg/dL (0.2-1); BLOOD UREA NITROGEN 21.2 mg/dL (7-18); CREATININE 0.8 mg/dL (0.55-1.3); MAGNESIUM 2.7 mg/dL (1.8-2.4); PHOSPHOROUS 3.2 mg/dL (2.5-4.9); POTASSIUM 4.2 mmol/L (3.5-5.1); TOT PROT 6.8 g/dl (6.4-8.2)
[2019-11-10] MEDS ORDERED: cefTRIAXone SODIUM 1 GM VIAL ONE (08:48)
[2019-11-10] MEDS ORDERED: DEXTROSE 5%-WATER - 50 ML IVPB ONE (08:48)
[2019-11-10] MEDS: AZITHROMYCIN IVPB 500 MG/250 ML BAG IVPB SCH (09:01)
[2019-11-10] MEDS: ENOXAPARIN NA (PORCINE) 40 MG/0.4 ML DISP.SYRIN SQ SCH (09:01)
[2019-11-10] MEDS: NICOTINE 21 MG/24 HOURS TOPICAL PATCH TD SCH (09:01)
[2019-11-10] MEDS: CEFTRIAXONE 1 GM in DEXTROSE 5%-WATER - 50 ML IVPB SCH (09:01)
--- NOTE | 2019-11-10 09:25 | PN ---
Physical Exam: SUBJECTIVE: Patient seen and examined in the morning. No acute events overnight. No events on cardiac monitoring. Patient has no complaints of chest pain, shortness of breath, abdominal pain, nausea, vomiting, diarrhea. OBJECTIVE: Vital Signs Period Temp Pulse Resp BP Sys/Gar Pulse Ox Last 24 Hr 97.8 F-98.9 F 90-116 19-25 81-123/55-88 97-100 GENERAL: Awake, alert, and fully oriented, in mild discomfort. HEAD: Normal with no signs of trauma. EYES: EOMI, sclera anicteric EARS, NOSE, THROAT: BiPAP in place. NECK: Normal range of motion, supple without lymphadenopathy, JVD, or masses. LUNGS: Lungs clear to auscultation bilaterally. HEART: Regular rate and rhythm, normal S1 and S2 without murmur, rub or gallop. ABDOMEN: Soft, nontender, not distended, normoactive bowel sounds, no guarding, no rebound, no masses. No hepatomegaly or splenomegaly. MUSCULOSKELETAL: Normal range of motion at all joints. No bony deformities or tenderness. No CVA tenderness. Extremities: 2+ pulses, warm, well-perfused. No cyanosis. No clubbing. Cap refill <2 seconds. No peripheral edema. NEUROLOGICAL: Cranial nerves II-XII intact. Normal speech. Normal gait. PSYCHIATRIC: Cooperative. Good eye contact. Appropriate mood and affect. SKIN: Warm, dry, normal turgor, no rashes or lesions noted. Laboratory Results - last 24 hr 11/10/19 11/10/19 06:05 06:05 WBC 11.9 H RBC 4.19 Hgb 13.7 Hct 40.8 MCV 97.3 H MCH 32.6 MCHC 33.5 RDW 14.0 Plt Count 259 MPV 7.9 Absolute Neuts (auto) 10.1 H Neutrophils % 84.6 H Lymphocytes % 7.7 L D Monocytes % 7.5 Eosinophils % 0.0 D Basophils % 0.2 D Nucleated RBC % 0 Sodium 140 Potassium 4.2 Chloride 108 H Carbon Dioxide 26 Anion Gap 7 L BUN 21.2 H Creatinine 0.8 Est GFR (CKD-EPI)AfAm 87.18 Est GFR (CKD-EPI)NonAf 75.22 Random Glucose 139 H Calcium 9.0 Phosphorus 3.2 Magnesium 2.7 H Total Bilirubin 0.3 AST 40 H ALT 34 Alkaline Phosphatase 57 Total Protein 6.8 Albumin 3.4 Active Medications Generic Name Dose Route Start Last Admin Trade Name Freq PRN Reason Stop Dose Admin Albuterol/Ipratropium 1 amp 11/09/19 08:00 11/09/19 21:14 Duoneb - NEB 1 amp RQID BART Administration Chlorhexidine Gluconate 1 applic 11/08/19 22:00 11/09/19 21:16 Hibiclens For Decolonization - TP Not Given HS BART Enoxaparin Sodium 40 mg 11/08/19 21:45 11/10/19 09:01 Lovenox - SQ 40 mg DAILY BART Administration Guaifenesin 10 ml 11/09/19 10:34 11/09/19 20:00 Robitussin - PO 10 ml Q6H PRN Administration COUGH Azithromycin 500 mg in 250 mls @ 250 mls/hr 11/09/19 10:00 11/10/19 09:01 Zithromax 500mg Ivpb (Pre-Docked) IVPB 250 mls/hr DAILY BART Administration Ceftriaxone Sodium 1 gm/ 50 mls @ 100 mls/hr 11/09/19 10:00 11/10/19 09:01 Dextrose IVPB 100 mls/hr DAILY BART Administration Protocol Methylprednisolone Sodium Succinate 60 mg 11/08/19 23:00 11/10/19 04:17 Solu-Medrol - IVPUSH 60 mg Q6H BART Administration Mupirocin 1 applic 11/08/19 22:00 11/09/19 21:06 Bactroban Ointment (For Decolonization) - NS 11/13/19 21:59 Not Given BID BART Nicotine 21 mg 11/09/19 10:00 11/10/19 09:01 Nicoderm Patch - TD 21 mg DAILY BART Administration ASSESSMENT/PLAN: 68F PMH COPD, IBS, spinal disc herniation, who presents today with acute hypoxic respiratory failure secondary to COPD exacerbation. Neuro -Patient is AAOx3 -Mentating well, able to stay on BiPAP Cardiovascular -Denies any chest pain today -EKG has QTC of 457 -Was tachycardic on presentation. Cardiac monitoring shows no acute events -Will continue to monitor Pulmonary -COPD exacerbation -Chest X-ray shows on acute changes compared to previous x-ray from last visit to [facility] -Repeat chest-xray shows no acute change -Duonebs -Solumedrol -Azithromycin -Ceftriaxone -Symbicort 160 2 puffs BID -Albuterol PRN -Trial NC, have BiPAP available. BiPAP setitngs I: 15/E : 5 RR: 16 Renal -Stable, will continue to monitor GI -Hx of IBS, decreased PO intake the past week -Once off BiPAP will encourage PO intake ID -Ceftriaxone and azithromycin given -D/C abx -Urine culture growing gram negative lactose fermenting bacteria, but 10k-20k and asymptomatic. -F/U cultures DVT: Lovenox F: Oral hydration E: Monitor CMP N: Regular diet Dispo: Transfer to Telemetry Visit type - Emergency Visit Emergency Visit: Yes ED Registration Date: 11/08/19 Care time: The patient presented to the Emergency Department on the above date and was hospitalized for further evaluation of their emergent condition. - New Patient This patient is new to me today: Yes Date on this admission: 11/10/19 - Critical Care Critical Care patient: Yes Total Critical Care Time (in minutes): 45 Critical Care Statement: The care of this patient involved high complexity decision making to prevent further life threatening deterioration of the patient 's condition and/or to evaluate & treat vital organ system(s) failure or risk of failure. ATTENDING PHYSICIAN STATEMENT I saw and evaluated the patient. I reviewed the resident's note and discussed the case with the resident. I agree with the resident's findings and plan as documented. SUBJECTIVE: OBJECTIVE: ASSESSMENT AND PLAN:
--- NOTE | 2019-11-10 10:58 | ECHO ---
Name: MYRNA HARMAN Exam:Adult Echocardiogram Study Date: 11/10/2019 07:47 AM Age: 68 yrs Reason For Study: LV Function Height: 67 in Weight: 149 lb BSA: 1.8 m2 MMode/2D Measurements & Calculations IVSd: 0.75 cm Ao root diam: 2.4 cm LVIDd: 4.0 cm LA dimension: 2.6 cm LVIDs: 2.9 cm LVPWd: 0.85 cm EDV(Teich): 68.1 ml LVOT diam: 2.0 cm ESV(Teich): 33.5 ml LAV (MOD-bp): 25.0 ml RV S Jayesh: 16.5 cm/sec Doppler Measurements & Calculations MV E max jyaesh: 73.7 cm/sec Ao V2 max: 145.2 cm/sec MV A max jayesh: 104.3 cm/sec Ao max P.4 mmHg MV E/A: 0.71 MV dec time: 0.13 sec ALYSSIA(V,D): 2.4 cm2 LV V1 max P.4 mmHg PA V2 max: 81.4 cm/sec LV V1 max: 115.9 cm/sec PA max P.7 mmHg Med Peak E' Jayesh: 5.3 cm/sec Med E/e': 13.8 Lat Peak E' Jayesh: 8.3 cm/sec Lat E/e': 8.9 Procedure A complete two-dimensional transthoracic echocardiogram was performed (2D, M-mode, Doppler and color flow Doppler). Technically limited study. Left Ventricle The left ventricle is normal in size. Left ventricular systolic function is low normal. Ejection Frac tion = 50-55%. Grade I diastolic dysfunction, (abnormal relaxation pattern). Ratio E/E'= 14. No regional wal l motion abnormalities noted. Right Ventricle The right ventricle is normal size. The right ventricular systolic function is normal. Atria The left atrial size is normal. Right atrial size is normal. Mitral Valve There is mild mitral valve thickening. There is mild mitral annular calcification. There is mild mitr al regurgitation. Tricuspid Valve The tricuspid valve is normal in structure and function. No tricuspid regurgitation. Aortic Valve There is mild aortic sclerosis.;. No aortic regurgitation is present. Pulmonic Valve The pulmonic valve is not well visualized. Great Vessels The aortic root is normal size. Pericardium/Pleura There is no pericardial effusion. Interpretation Summary Technically limited study The left ventricle is normal in size. Left ventricular systolic function is low normal. No regional wall motion abnormalities noted. Ejection Fraction = 50-55%. Grade I diastolic dysfunction, (abnormal relaxation pattern). Ratio E/E'= 14 The right ventricular systolic function is normal. The left atrial size is normal. Right atrial size is normal. There is mild mitral valve thickening. There is mild mitral annular calcification. There is mild mitral regurgitation. There is mild aortic sclerosis. There is no pericardial effusion. Harpal Salinas MD 11/10/2019 10:57 AM
--- NOTE | 2019-11-10 11:20 | PN ---
Progress Note (short form) - Note Progress Note: Hospitalist Medicine Resting in bed, states she is unsure whether she will be able to come off BiPAP. Vitals 11/10/19 10:00 Temperature 98.2 F Pulse Rate 97 H Respiratory 22 H Rate Blood Pressure 109/79 Physical Exam general: resting in bed, in NAD. on BiPAP heent: NCAT, PERRLA neck: supple cardio: S1, S2 RRR. no r/mg pulm: +decreased breath sounds b/l. no accessory m usage able to speak while on biPAP abdomen: soft, NTND LE: 2+ pulses, no edema Laboratory Tests 11/10/19 11/10/19 06:05 06:05 WBC 11.9 H Hgb 13.7 Hct 40.8 Plt Count 259 Sodium 140 Potassium 4.2 Chloride 108 H Carbon Dioxide 26 Anion Gap 7 L BUN 21.2 H Creatinine 0.8 Random Glucose 139 H Magnesium 2.7 H Total Bilirubin 0.3 AST 40 H ALT 34 Alkaline Phosphatase 57 Total Protein 6.8 Albumin 3.4 Microbiology 11/08/19 22:46 Urine - Urine - Catheterized Urine Culture - Preliminary Lactose Fermenting Neg Bacilli (likely contaminant : 10-20,000 cfu) 11/08/19 18:50 Blood - Peripheral Venous Blood Culture - Preliminary NO GROWTH OBTAINED AFTER 24 HOURS, INCUBATION TO CONTINUE FOR 4 DAYS. 11/08/19 18:50 Blood - Peripheral Venous Blood Culture - Preliminary NO GROWTH OBTAINED AFTER 24 HOURS, INCUBATION TO CONTINUE FOR 4 DAYS. Imaging 11/08/19: EKG: sinus tach, rate 126bpm, qtc 457ms. possible LAE 11/08/19: CXR:aortic plaque, prominent hilar markings, no sign of infiltrate or failure 11/09/19: CXR: no acute chest path 11/10/19: CXR: hyperinflation, normal mediastinum 11/10/19: ECHO: LVSF 50-55%, grade 1 diastolic dysfunction, mild MR, mild , no pericardial effusion Assessment/Plan 58y/o F with history of COPD (no prior intubation), irritable bowel syndrome, who presented with complaint of shortness of breath. Admitted for acute COPD exacerbation requiring BiPAP likely due to anxious state. #Acute hypoxic RF 2/2 COPD exacerbation -has been requiring BiPAP. wean as tolerated -was on CAP tx (cef, zithro), but have d/c cef . low suspicion PNA, no evidence infiltrate -will c/w zithro during COPD exac for now -xanax PRN for anxiety -on medrol 60mg IVP q6h -Pulm: Dr. Guardado #Troponinemia likely 2/2 demand, COPD exac -trending down. do not need to cont trending -has been asymptomatic #Nicotine dependence -c/w nicotine patch -outpt resources on d/c #F/E/N does not req IVF cont to follow lytes reg diet; however NPO while on BiPAP. avoid aspiration #PPX DVT: on lovenox #Dispo transfer to tele
[2019-11-10] MEDS: ALBUTEROL SO4 2.5/IPRATROPIUM 0.5 INH SOL 3 ML VIAL.NEB. NEB SCH ×2 (11:23→20:07)
[2019-11-10] MEDS ORDERED: ALBUTEROL SO4 0.083% IH SOL 2.5 MG/3 ML VIAL.NEB. NEB PRN ×2 (11:32→17:24)
[2019-11-10] MEDS: MUPIROCIN 2% TOPICAL OINTMENT FOR DECOLONIZATION NS SCH (11:39)
[2019-11-10 11:59] VITALS: BMI 23.3
[2019-11-10] MEDS ORDERED: ALBUTEROL SO4 2.5/IPRATROPIUM 0.5 INH SOL 3 ML VIAL.NEB. NEB SCH (12:00)
--- NOTE | 2019-11-10 12:49 | PN ---
Teaching Attending Note Name of Resident: Sarah Ro ATTENDING PHYSICIAN STATEMENT I saw and evaluated the patient. I reviewed the resident's note and discussed the case with the resident. I agree with the resident's findings and plan as documented. SUBJECTIVE: Pt seen and examined in the ICU. Remains on BiPAP. States breathing slightly improved from yesterday. OBJECTIVE: Vital Signs Period Temp Pulse Resp BP Sys/Gra Pulse Ox Last 24 Hr 98.2 F-98.9 F 90-111 19-26 81-123/55-88 97-100 Intake & Output 11/07/19 11/08/19 11/09/19 11/10/19 23:59 23:59 23:59 23:59 Intake Total 600 725 50 Output Total 800 Balance 600 -75 50 Weight 67.948 kg 67.585 kg Gen: mildly tachypneic on BiPAP Heart: RRR Lung: distant breath sounds Abd: soft, nontender Ext: no edema CBC, BMP 11/10/19 06:05 11/10/19 06:05 Active Medications Albuterol Sulfate (Ventolin 0.083% Nebulizer Soln -) 1 amp NEB Q4H PRN PRN Reason: SHORT OF BREATH/WHEEZING Albuterol/Ipratropium (Duoneb -) 1 amp NEB RQ4H BART Budesonide/Formoterol Fumarate (Symbicort 160/4.5mcg -) 2 puff IH BID [facility] Chlorhexidine Gluconate (Hibiclens For Decolonization -) 1 applic TP HS [facility] Last Admin: 11/09/19 21:16 Dose: Not Given Enoxaparin Sodium (Lovenox -) 40 mg SQ DAILY [facility] Last Admin: 11/10/19 09:01 Dose: 40 mg Guaifenesin (Robitussin -) 10 ml PO Q6H PRN PRN Reason: COUGH Last Admin: 11/09/19 20:00 Dose: 10 ml Azithromycin (Zithromax 500mg Ivpb (Pre-Docked)) 500 mg in 250 mls @ 250 mls/ hr IVPB DAILY [facility] Methylprednisolone Sodium Succinate (Solu-Medrol -) 60 mg IVPUSH Q6H [facility] Last Admin: 11/10/19 11:37 Dose: 60 mg Mupirocin (Bactroban Ointment (For Decolonization) -) 1 applic NS BID [facility] Stop: 11/13/19 21:59 Last Admin: 11/10/19 11:39 Dose: 1 applic Nicotine (Nicoderm Patch -) 21 mg TD DAILY [facility] Last Admin: 11/10/19 09:01 Dose: 21 mg ASSESSMENT AND PLAN: Acute Hypercapneic Respiratory Failure Acute COPD Exacerbation +Troponins likely Demand Ischemia Irritable Bowel Syndrome Smoker - continue medrol - inhaled bronchodilators standing and PRN - o2 to keep Spo2 >90% - adjusted BiPAP settings - PO as tolerated - DVT prophylaxis - can monitor on telemetry
--- NOTE | 2019-11-10 16:06 | PN ---
Teaching Attending Note Name of Resident: Ivette Cruz ATTENDING PHYSICIAN STATEMENT I saw and evaluated the patient. I reviewed the resident's note and discussed the case with the resident. I agree with the resident's findings and plan as documented. SUBJECTIVE: Patient feels less SOB. OBJECTIVE: Vital Signs Period Temp Pulse Resp BP Sys/Gar Pulse Ox Last 24 Hr 98.2 F-98.9 F 90-111 19-26 81-123/55-88 97-100 HEART: S1S2, RRR LUNGS: Clear with decreased BS ABDOMEN: Soft, non-tender, non-distended, normal BS EXTREMITIES: No edema Laboratory Results - last 24 hr 11/10/19 11/10/19 06:05 06:05 WBC 11.9 H RBC 4.19 Hgb 13.7 Hct 40.8 MCV 97.3 H MCH 32.6 MCHC 33.5 RDW 14.0 Plt Count 259 MPV 7.9 Absolute Neuts (auto) 10.1 H Neutrophils % 84.6 H Lymphocytes % 7.7 L D Monocytes % 7.5 Eosinophils % 0.0 D Basophils % 0.2 D Nucleated RBC % 0 Sodium 140 Potassium 4.2 Chloride 108 H Carbon Dioxide 26 Anion Gap 7 L BUN 21.2 H Creatinine 0.8 Est GFR (CKD-EPI)AfAm 87.18 Est GFR (CKD-EPI)NonAf 75.22 Random Glucose 139 H Calcium 9.0 Phosphorus 3.2 Magnesium 2.7 H Total Bilirubin 0.3 AST 40 H ALT 34 Alkaline Phosphatase 57 Total Protein 6.8 Albumin 3.4 Current Medications Generic Name Dose Route Start Last Admin Trade Name Freq PRN Reason Stop Dose Admin Albuterol Sulfate 1 amp 11/10/19 11:32 Ventolin 0.083% Nebulizer Soln - NEB Q4H PRN SHORT OF BREATH/WHEEZING Albuterol/Ipratropium 1 amp 11/10/19 12:00 Duoneb - NEB RQ4H [facility] Budesonide/Formoterol Fumarate 2 puff 11/10/19 22:00 Symbicort 160/4.5mcg - IH BID B[facility] Chlorhexidine Gluconate 1 applic 11/08/19 22:00 11/09/19 21:16 Hibiclens For Decolonization - TP Not Given HS BART Enoxaparin Sodium 40 mg 11/08/19 21:45 11/10/19 09:01 Lovenox - SQ 40 mg DAILY [facility] Administration Guaifenesin 10 ml 11/09/19 10:34 11/09/19 20:00 Robitussin - PO 10 ml Q6H PRN Administration COUGH Azithromycin 500 mg in 250 mls @ 250 mls/hr 11/11/19 10:00 Zithromax 500mg Ivpb (Pre-Docked) IVPB DAILY [facility] Methylprednisolone Sodium Succinate 60 mg 11/08/19 23:00 11/10/19 11:37 Solu-Medrol - IVPUSH 60 mg Q6H [facility] Administration Mupirocin 1 applic 11/08/19 22:00 11/10/19 11:39 Bactroban Ointment (For Decolonization) - NS 11/13/19 21:59 1 applic BID BART Administration Nicotine 21 mg 11/09/19 10:00 11/10/19 09:01 Nicoderm Patch - TD 21 mg DAILY B[facility] Administration ASSESSMENT AND PLAN: This is a 58 year old woman with a history of COPD, IBS who presented to the ED with SOB. 1. Acute hypoxic and hypercapneic respiratory failure secondary to acute exacerbation of COPD - Continue SoluMedrol, Symbicort, DuoNeb, Zithromax - Continue BiPAP 2. Demand ischemia 3. Irritable bowel syndrome 4. Nicotine dependence - Continue nicotine patch
[2019-11-10] MEDS ORDERED: guaiFENesin 200 MG/10 ML 10 ML UNIT-DOSE CUPS PO PRN (17:24)
[2019-11-10] MEDS ORDERED: ALPRAZolam 0.25 MG TABLET PO ONE (21:06)
[2019-11-10] MEDS ORDERED: MUPIROCIN 2% TOPICAL OINTMENT FOR DECOLONIZATION NS SCH (22:00)
[2019-11-10] MEDS ORDERED: CHLORHEXIDINE GLUCONATE 4% CLEANSER FOR DECOLONIZATION TP SCH (22:00)
[2019-11-10] MEDS ORDERED: BUDESONIDE/FORMETEROL FUMARATE 160/4.5 mcg INHALER IH SCH (22:00)
[2019-11-10] MEDS: BUDESONIDE/FORMETEROL FUMARATE 160/4.5 mcg INHALER IH SCH (23:08)
[2019-11-11] MEDS: ALBUTEROL SO4 2.5/IPRATROPIUM 0.5 INH SOL 3 ML VIAL.NEB. NEB SCH ×6 (00:26→21:15)
[2019-11-11] MEDS: methylPREDNISolone NA SUCC 40 MG/1 ML VIAL IVPUSH SCH ×4 (05:23→21:59)
[2019-11-11 06:40] LABS: BASO % 0.3 % (0-2.0); HEMATOCRIT 41.8 % (32.4-45.2); HEMOGLOBIN 14.1 GM/dL (10.7-15.3); LYMPH % 11.2 % (8-40); MCHC 33.6 g/dl (32.0-36.0); MEAN PLT VOLUME 8.3 fl (7.5-11.1); MONO % 8.8 % (3.8-10.2); NEUT % 79.7 % (42.8-82.8); PLATELET COUNT 296 K/MM3 (134-434); RBC 4.26 M/mm3 (3.60-5.2); RDW 14.3 % (11.6-15.6); WHITE BLOOD COUNT 10.7 K/mm3 (4.0-10.0)
[2019-11-11 07:38] LABS: BLOOD UREA NITROGEN 30.6 mg/dL (7-18); CALCIUM 9.4 mg/dL (8.5-10.1); CREATININE 0.8 mg/dL (0.55-1.3); MAGNESIUM 2.8 mg/dL (1.8-2.4); PHOSPHOROUS 3.8 mg/dL (2.5-4.9); POTASSIUM 4.5 mmol/L (3.5-5.1)
[2019-11-11] MEDS: ENOXAPARIN NA (PORCINE) 40 MG/0.4 ML DISP.SYRIN SQ SCH (09:45)
[2019-11-11] MEDS: NICOTINE 21 MG/24 HOURS TOPICAL PATCH TD SCH (09:46)
[2019-11-11] MEDS: BUDESONIDE/FORMETEROL FUMARATE 160/4.5 mcg INHALER IH SCH ×2 (09:47→21:34)
[2019-11-11] MEDS ORDERED: AZITHROMYCIN IVPB 500 MG/250 ML BAG IVPB SCH ×2 (10:00)
--- NOTE | 2019-11-11 12:51 | PN ---
Progress Note (short form) - Note Progress Note: NIPPV support overnight. Coughing fit that lasted a few hours but now better. (+) diarrhea. No CP. Intake & Output 11/08/19 11/09/19 11/10/19 11/11/19 23:59 23:59 23:59 23:59 Intake Total 005 562 9637 250 Output Total 800 200 Balance 600 -75 1640 250 Weight 149 lb 12.8 oz 149 lb Last Vital Signs Temp Pulse Resp BP Pulse Ox 98.3 F 100 H 24 H 103/82 99 11/11/19 10:00 11/11/19 10:00 11/11/19 10:00 11/11/19 10:00 11/11/19 11:49 Active Medications Albuterol Sulfate (Ventolin 0.083% Nebulizer Soln -) 1 amp NEB Q4H PRN PRN Reason: SHORT OF BREATH/WHEEZING Albuterol/Ipratropium (Duoneb -) 1 amp NEB RQ4H [facility] Last Admin: 11/11/19 11:50 Dose: 1 amp Budesonide/Formoterol Fumarate (Symbicort 160/4.5mcg -) 2 puff IH BID [facility] Last Admin: 11/11/19 09:47 Dose: 2 puff Enoxaparin Sodium (Lovenox -) 40 mg SQ DAILY [facility] Last Admin: 11/11/19 09:45 Dose: 40 mg Guaifenesin (Robitussin -) 10 ml PO Q6H PRN PRN Reason: COUGH Last Admin: 11/11/19 09:47 Dose: 10 ml Methylprednisolone Sodium Succinate (Solu-Medrol -) 60 mg IVPUSH Q6H [facility] Last Admin: 11/11/19 10:44 Dose: 60 mg Nicotine (Nicoderm Patch -) 21 mg TD DAILY [facility] Last Admin: 11/11/19 09:46 Dose: 21 mg Gen: mildly tachypneic with speaking Heart: RRR Lung: distant breath sounds, few scattered rhonchi Abd: soft, nontender Ext: no edema Laboratory Results - last 24 hr 11/11/19 11/11/19 05:20 05:20 WBC 10.7 H RBC 4.26 Hgb 14.1 Hct 41.8 MCV 98.0 H MCH 33.0 MCHC 33.6 RDW 14.3 Plt Count 296 MPV 8.3 Absolute Neuts (auto) 8.5 H Neutrophils % 79.7 Lymphocytes % 11.2 D Monocytes % 8.8 Eosinophils % 0.0 Basophils % 0.3 Nucleated RBC % 0 Sodium 143 Potassium 4.5 Chloride 109 H Carbon Dioxide 28 Anion Gap 7 L BUN 30.6 H Creatinine 0.8 Est GFR (CKD-EPI)AfAm 87.18 Est GFR (CKD-EPI)NonAf 75.22 Random Glucose 142 H Calcium 9.4 Phosphorus 3.8 Magnesium 2.8 H ASSESSMENT AND PLAN: Acute Hypercapneic Respiratory Failure Acute COPD Exacerbation +Troponins likely Demand Ischemia Irritable Bowel Syndrome Smoker - continue medrol - inhaled bronchodilators standing and PRN - o2 to keep Spo2 >90% - NIPPV support QHS and PRN - PO as tolerated - DVT prophylaxis - No smoking discussed Dr Harris
--- NOTE | 2019-11-11 14:51 | PN ---
Progress Note (short form) - Note Progress Note: Hospitalist Medicine Used BiPAP overnight. Was using NC 2L 02 this AM. C/o diarrhea, which she noticed in relation to the abx. Vitals 11/11/19 10:00 Temperature 98.3 F Pulse Rate 100 H Respiratory 24 H Rate Blood Pressure 103/82 Physical Exam general: resting in bed, in NAD. heent: NCAT, PERRLA neck: supple cardio: S1, S2 RRR. no r/mg pulm: +decreased breath sounds, air mvmt. 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 11/08/19 18:50 Blood - Peripheral Venous Blood Culture - Preliminary NO GROWTH OBTAINED AFTER 24 HOURS, INCUBATION TO CONTINUE FOR 4 DAYS. Imaging 11/08/19: EKG: sinus tach, rate 126bpm, qtc 457ms. possible LAE 11/08/19: CXR:aortic plaque, prominent hilar markings, no sign of infiltrate or failure 11/09/19: CXR: no acute chest path 11/10/19: CXR: hyperinflation, normal mediastinum 11/10/19: ECHO: LVSF 50-55%, grade 1 diastolic dysfunction, mild MR, mild , no pericardial effusion 11/11/19: CXR: since previous study, well expanded lung lyon, normal mediastinum, no sign of acute process Assessment/Plan 58y/o F with history of COPD (no prior intubation), irritable bowel syndrome, who presented with complaint of shortness of breath. Admitted for acute COPD exacerbation requiring BiPAP likely due to anxious state. #Acute hypoxic RF 2/2 COPD exacerbation -has been requiring BiPAP. wean as tolerated -abx (cef, zithro) have been d/c, as with diarrhea. no sign of CAP on CXR -xanax PRN for anxiety -on medrol 60mg IVP q6h -Pulm: Dr. Harris #Troponinemia likely 2/2 demand, COPD exac -trending down. do not need to cont trending -has been asymptomatic #Nicotine dependence -c/w nicotine patch -outpt resources on d/c #F/E/N does not req IVF cont to follow lytes reg diet; however NPO while on BiPAP. avoid aspiration #PPX DVT: on lovenox #Dispo monitoring on tele
--- NOTE | 2019-11-11 17:43 | PN ---
Teaching Attending Note Name of Resident: Ivette Cruz ATTENDING PHYSICIAN STATEMENT I saw and evaluated the patient. I reviewed the resident's note and discussed the case with the resident. I agree with the resident's findings and plan as documented. SUBJECTIVE: Patient reports she is having diarrhea. OBJECTIVE: Vital Signs Period Temp Pulse Resp BP Sys/Gar Pulse Ox Last 24 Hr 97.6 F-982 F 97-105 20-24 103-157/58-96 94-99 HEART: S1S2, RRR LUNGS: Clear with decreased BS ABDOMEN: Soft, non-tender, non-distended, normal BS EXTREMITIES: No edema Laboratory Results - last 24 hr 11/11/19 11/11/19 05:20 05:20 WBC 10.7 H RBC 4.26 Hgb 14.1 Hct 41.8 MCV 98.0 H MCH 33.0 MCHC 33.6 RDW 14.3 Plt Count 296 MPV 8.3 Absolute Neuts (auto) 8.5 H Neutrophils % 79.7 Lymphocytes % 11.2 D Monocytes % 8.8 Eosinophils % 0.0 Basophils % 0.3 Nucleated RBC % 0 Sodium 143 Potassium 4.5 Chloride 109 H Carbon Dioxide 28 Anion Gap 7 L BUN 30.6 H Creatinine 0.8 Est GFR (CKD-EPI)AfAm 87.18 Est GFR (CKD-EPI)NonAf 75.22 Random Glucose 142 H Calcium 9.4 Phosphorus 3.8 Magnesium 2.8 H Current Medications Generic Name Dose Route Start Last Admin Trade Name Freq PRN Reason Stop Dose Admin Albuterol Sulfate 1 amp 11/10/19 17:24 Ventolin 0.083% Nebulizer Soln - NEB Q4H PRN SHORT OF BREATH/WHEEZING Albuterol/Ipratropium 1 amp 11/10/19 20:00 11/11/19 15:45 Duoneb - NEB 1 amp RQ4H [facility] Administration Budesonide/Formoterol Fumarate 2 puff 11/10/19 22:00 11/11/19 09:47 Symbicort 160/4.5mcg - IH 2 puff BID [facility] Administration Enoxaparin Sodium 40 mg 11/11/19 10:00 11/11/19 09:45 Lovenox - SQ 40 mg DAILY [facility] Administration Guaifenesin 10 ml 11/10/19 17:24 11/11/19 09:47 Robitussin - PO 10 ml Q6H PRN Administration COUGH Methylprednisolone Sodium Succinate 60 mg 11/10/19 23:00 11/11/19 17:09 Solu-Medrol - IVPUSH 60 mg Q6H [facility] Administration Nicotine 21 mg 11/11/19 10:00 11/11/19 09:46 Nicoderm Patch - TD 21 mg DAILY [facility] Administration ASSESSMENT AND PLAN: This is a 58 year old woman with a history of COPD, IBS who presented to the ED with SOB. 1. Acute hypoxic and hypercapneic respiratory failure secondary to acute exacerbation of COPD - Continue SoluMedrol, Symbicort, DuoNeb - Continue BiPAP at night and as needed - Oxygen to maintain saturation >90% 2. Demand ischemia 3. Diarrhea - Possibly antibiotic-related - antibiotics have been discontinued - vs IBS 4. Irritable bowel syndrome 5. Nicotine dependence - Continue nicotine patch
[2019-11-11] MEDS ORDERED: ALPRAZolam 0.25 MG TABLET PO ONE (21:35)
[2019-11-12] MEDS: ALBUTEROL SO4 2.5/IPRATROPIUM 0.5 INH SOL 3 ML VIAL.NEB. NEB SCH ×6 (00:23→21:15)
[2019-11-12] MEDS: methylPREDNISolone NA SUCC 40 MG/1 ML VIAL IVPUSH SCH ×3 (06:35→18:43)
[2019-11-12 07:12] LABS: BASO % 0.1 % (0-2.0); HEMATOCRIT 39.8 % (32.4-45.2); HEMOGLOBIN 13.3 GM/dL (10.7-15.3); LYMPH % 17.9 % (8-40); MCH 32.9 pg (25.7-33.7); MCHC 33.4 g/dl (32.0-36.0); MEAN CELL VOLUME 98.3 fl (80-96); MEAN PLT VOLUME 8.3 fl (7.5-11.1); PLATELET COUNT 292 K/MM3 (134-434); RBC 4.04 M/mm3 (3.60-5.2); RDW 13.7 % (11.6-15.6); WHITE BLOOD COUNT 9.3 K/mm3 (4.0-10.0)
[2019-11-12 08:21] LABS: BLOOD UREA NITROGEN 24.7 mg/dL (7-18); CALCIUM 8.8 mg/dL (8.5-10.1); CREATININE 0.7 mg/dL (0.55-1.3); MAGNESIUM 2.6 mg/dL (1.8-2.4); PHOSPHOROUS 4.1 mg/dL (2.5-4.9); POTASSIUM 4.6 mmol/L (3.5-5.1)
[2019-11-12] MEDS: ENOXAPARIN NA (PORCINE) 40 MG/0.4 ML DISP.SYRIN SQ SCH (09:36)
[2019-11-12] MEDS: NICOTINE 21 MG/24 HOURS TOPICAL PATCH TD SCH (09:36)
[2019-11-12] MEDS: BUDESONIDE/FORMETEROL FUMARATE 160/4.5 mcg INHALER IH SCH ×2 (09:36→21:14)
[2019-11-12] MEDS ORDERED: PSEUDOEPHEDRINE HCL 30 MG TABLET PO ONE (10:32)
[2019-11-12] MEDS ORDERED: IBUPROFEN 200 MG TABLET PO ONE (11:45)
--- NOTE | 2019-11-12 14:10 | PN ---
Teaching Attending Note Name of Resident: Ivette Cruz ATTENDING PHYSICIAN STATEMENT I saw and evaluated the patient. I reviewed the resident's note and discussed the case with the resident. I agree with the resident's findings and plan as documented. SUBJECTIVE: Patient complains of cough when not using BiPAP. Diarrhea improved. OBJECTIVE: Vital Signs Period Temp Pulse Resp BP Sys/Gar Pulse Ox Last 24 Hr 97.8 F-98.8 F 78-111 20-22 92-169/52-83 96-97 HEART: S1S2, RRR LUNGS: Clear with decreased BS ABDOMEN: Soft, non-tender, non-distended, normal BS EXTREMITIES: No edema Laboratory Results - last 24 hr 11/12/19 11/12/19 06:03 06:03 WBC 9.3 RBC 4.04 Hgb 13.3 Hct 39.8 MCV 98.3 H MCH 32.9 MCHC 33.4 RDW 13.7 Plt Count 292 MPV 8.3 Absolute Neuts (auto) 6.3 Neutrophils % 68.0 Lymphocytes % 17.9 D Monocytes % 14.0 H Eosinophils % 0.0 Basophils % 0.1 Nucleated RBC % 0 Sodium 143 Potassium 4.6 Chloride 108 H Carbon Dioxide 28 Anion Gap 7 L BUN 24.7 H Creatinine 0.7 Est GFR (CKD-EPI)AfAm 102.46 Est GFR (CKD-EPI)NonAf 88.40 Random Glucose 114 H Calcium 8.8 Phosphorus 4.1 Magnesium 2.6 H Current Medications Generic Name Dose Route Start Last Admin Trade Name Freq PRN Reason Stop Dose Admin Albuterol Sulfate 1 amp 11/10/19 17:24 11/12/19 06:25 Ventolin 0.083% Nebulizer Soln - NEB 1 amp Q4H PRN Administration SHORT OF BREATH/WHEEZING Albuterol/Ipratropium 1 amp 11/10/19 20:00 11/12/19 08:40 Duoneb - NEB 1 amp RQ4H [facility] Administration Budesonide/Formoterol Fumarate 2 puff 11/10/19 22:00 11/12/19 09:36 Symbicort 160/4.5mcg - IH 2 puff BID [facility] Administration Enoxaparin Sodium 40 mg 11/11/19 10:00 11/12/19 09:36 Lovenox - SQ 40 mg DAILY [facility] Administration Guaifenesin 10 ml 11/10/19 17:24 11/11/19 09:47 Robitussin - PO 10 ml Q6H PRN Administration COUGH Methylprednisolone Sodium Succinate 60 mg 11/10/19 23:00 11/12/19 11:21 Solu-Medrol - IVPUSH 60 mg Q6H B[facility] Administration Nicotine 21 mg 11/11/19 10:00 11/12/19 09:36 Nicoderm Patch - TD 21 mg DAILY [facility] Administration ASSESSMENT AND PLAN: This is a 58 year old woman with a history of COPD, IBS who presented to the ED with SOB. 1. Acute hypoxic and hypercapneic respiratory failure secondary to acute exacerbation of COPD - Continue SoluMedrol, Symbicort, DuoNeb - Continue BiPAP at night and as needed - Oxygen to maintain saturation >90% 2. Demand ischemia 3. Diarrhea - Possibly antibiotic-related - resolved once antibiotics discontinued 4. Irritable bowel syndrome 5. Nicotine dependence - Continue nicotine patch
--- NOTE | 2019-11-12 14:29 | PN ---
Progress Note (short form) - Note Progress Note: PULMONARY States breathing better but with persistent nonproductive cough. Vital Signs Period Temp Pulse Resp BP Sys/Gar Pulse Ox Last 24 Hr 97.8 F-98.8 F 78-111 20-22 92-169/52-83 96-97 Gen: less tachypneic Heart: RRR Lung: distant breath sounds Abd: soft, nontender Ext: no edema CBC, BMP 11/12/19 06:03 11/12/19 06:03 Active Medications Albuterol Sulfate (Ventolin 0.083% Nebulizer Soln -) 1 amp NEB Q4H PRN PRN Reason: SHORT OF BREATH/WHEEZING Last Admin: 11/12/19 06:25 Dose: 1 amp Albuterol/Ipratropium (Duoneb -) 1 amp NEB RQ4H [facility] Last Admin: 11/12/19 08:40 Dose: 1 amp Budesonide/Formoterol Fumarate (Symbicort 160/4.5mcg -) 2 puff IH BID [facility] Last Admin: 11/12/19 09:36 Dose: 2 puff Enoxaparin Sodium (Lovenox -) 40 mg SQ DAILY [facility] Last Admin: 11/12/19 09:36 Dose: 40 mg Guaifenesin (Robitussin -) 10 ml PO Q6H PRN PRN Reason: COUGH Last Admin: 11/11/19 09:47 Dose: 10 ml Methylprednisolone Sodium Succinate (Solu-Medrol -) 60 mg IVPUSH Q6H [facility] Last Admin: 11/12/19 11:21 Dose: 60 mg Nicotine (Nicoderm Patch -) 21 mg TD DAILY [facility] Last Admin: 11/12/19 09:36 Dose: 21 mg A/P Acute Hypercapneic Respiratory Failure Acute COPD Exacerbation +Troponins likely Demand Ischemia Irritable Bowel Syndrome Smoker - will decrease medrol to q8h - inhaled bronchodilators standing and PRN - o2 to keep Spo2 >90% - BiPAP as needed - cough suppressants - PO as tolerated - DVT prophylaxis
[2019-11-12] MEDS: guaiFENesin/CODEINE 5 ML UNIT-DOSE CUPS PO SCH ×2 (15:00→21:40)
--- NOTE | 2019-11-12 15:10 | PN ---
Progress Note (short form) - Note Progress Note: Hospitalist Medicine Resting in bed, off 02. Breathing is better, but has been coughing and feels congested. Upset that her neighbor left the light on overnight Vitals 11/12/19 14:00 Temperature 97.8 F Pulse Rate 86 Respiratory 22 H Rate Blood Pressure 155/79 Physical Exam general: resting in bed, in NAD. heent: NCAT, PERRLA neck: supple cardio: S1, S2 RRR. no r/mg pulm: +decreased breath sounds, few wheezes. 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 11/08/19 18:50 Blood - Peripheral Venous Blood Culture - Preliminary NO GROWTH OBTAINED AFTER 72 HOURS, INCUBATION TO CONTINUE FOR 2 DAYS. Imaging 11/08/19: EKG: sinus tach, rate 126bpm, qtc 457ms. possible LAE 11/08/19: CXR:aortic plaque, prominent hilar markings, no sign of infiltrate or failure 11/09/19: CXR: no acute chest path 11/10/19: CXR: hyperinflation, normal mediastinum 11/10/19: ECHO: LVSF 50-55%, grade 1 diastolic dysfunction, mild MR, mild , no pericardial effusion 11/11/19: CXR: since previous study, well expanded lung lyon, normal mediastinum, no sign of acute process Assessment/Plan 58y/o F with history of COPD (no prior intubation), irritable bowel syndrome, who presented with complaint of shortness of breath. Admitted for acute COPD exacerbation requiring BiPAP likely due to anxious state. #Acute hypoxic RF 2/2 COPD exacerbation -has been requiring BiPAP. wean as tolerated -abx (cef, zithro) have been d/c, as with diarrhea. no sign of CAP on CXR -xanax PRN for anxiety -on medrol 60mg IVP changed to q8h -symbicort, duonebs RQID, ventolin PRN -robitussin PRN -Pulm: Dr. Guardado #Troponinemia likely 2/2 demand, COPD exac -trending down. do not need to cont trending -has been asymptomatic #Nicotine dependence -c/w nicotine patch -outpt resources on d/c #F/E/N does not req IVF cont to follow lytes reg diet; however NPO while on BiPAP. avoid aspiration #PPX DVT: on lovenox #Dispo monitoring on tele will need pre and post on d/c lives independently
[2019-11-12] MEDS ORDERED: ALPRAZolam 1 MG TABLET PO ONE (21:10)
[2019-11-13] MEDS: methylPREDNISolone NA SUCC 40 MG/1 ML VIAL IVPUSH SCH ×3 (00:59→18:04)
[2019-11-13] MEDS: guaiFENesin/CODEINE 5 ML UNIT-DOSE CUPS PO SCH ×3 (05:51→22:08)
[2019-11-13 07:36] LABS: BASO % 0.1 % (0-2.0); HEMATOCRIT 40.1 % (32.4-45.2); HEMOGLOBIN 13.5 GM/dL (10.7-15.3); LYMPH % 13.1 % (8-40); MCH 32.7 pg (25.7-33.7); MCHC 33.7 g/dl (32.0-36.0); MEAN CELL VOLUME 97.3 fl (80-96); MEAN PLT VOLUME 8.3 fl (7.5-11.1); MONO % 7.2 % (3.8-10.2); NEUT % 79.6 % (42.8-82.8); PLATELET COUNT 303 K/MM3 (134-434); RBC 4.13 M/mm3 (3.60-5.2); RDW 13.3 % (11.6-15.6); WHITE BLOOD COUNT 7.5 K/mm3 (4.0-10.0)
[2019-11-13 08:20] LABS: BLOOD UREA NITROGEN 19.8 mg/dL (7-18); CREATININE 0.7 mg/dL (0.55-1.3); MAGNESIUM 2.6 mg/dL (1.8-2.4); PHOSPHOROUS 3.9 mg/dL (2.5-4.9); POTASSIUM 4.3 mmol/L (3.5-5.1)
[2019-11-13] MEDS: BUDESONIDE/FORMETEROL FUMARATE 160/4.5 mcg INHALER IH SCH ×2 (08:59→22:08)
[2019-11-13] MEDS: ENOXAPARIN NA (PORCINE) 40 MG/0.4 ML DISP.SYRIN SQ SCH (09:00)
[2019-11-13] MEDS: NICOTINE 21 MG/24 HOURS TOPICAL PATCH TD SCH (09:00)
[2019-11-13] MEDS: ALBUTEROL SO4 2.5/IPRATROPIUM 0.5 INH SOL 3 ML VIAL.NEB. NEB SCH ×4 (09:01→20:45)
--- NOTE | 2019-11-13 11:37 | PN ---
Progress Note (short form) - Note Progress Note: NIPPV support overnight. Jennings HOWARD after coming back from the bathroom around 10 :30 and placed herself back on NIPPV support. No CP. Intake & Output 11/10/19 11/11/19 11/12/19 11/13/19 23:59 23:59 23:59 23:59 Intake Total 1840 1150 810 510 Output Total 200 Balance 1640 1150 810 510 Weight 149 lb Last Vital Signs Temp Pulse Resp BP Pulse Ox 97.8 F 70 22 H 146/70 97 11/13/19 10:00 11/13/19 10:00 11/13/19 10:00 11/13/19 10:00 11/12/19 21:00 Active Medications Albuterol Sulfate (Ventolin 0.083% Nebulizer Soln -) 1 amp NEB Q4H PRN PRN Reason: SHORT OF BREATH/WHEEZING Last Admin: 11/12/19 06:25 Dose: 1 amp Albuterol/Ipratropium (Duoneb -) 1 amp NEB RQ4H [facility] Last Admin: 11/13/19 09:01 Dose: 1 amp Budesonide/Formoterol Fumarate (Symbicort 160/4.5mcg -) 2 puff IH BID [facility] Last Admin: 11/13/19 08:59 Dose: 2 puff Enoxaparin Sodium (Lovenox -) 40 mg SQ DAILY [facility] Last Admin: 11/13/19 09:00 Dose: 40 mg Guaifenesin/Codeine Phosphate (Robitussin Ac -) 10 ml PO Q8H [facility] Last Admin: 11/13/19 05:51 Dose: 10 ml Methylprednisolone Sodium Succinate (Solu-Medrol -) 60 mg IVPUSH Q8H [facility] Last Admin: 11/13/19 09:00 Dose: 60 mg Nicotine (Nicoderm Patch -) 21 mg TD DAILY [facility] Last Admin: 11/13/19 09:00 Dose: 21 mg Gen: mildly tachypneic with speaking Heart: RRR Lung: distant breath sounds, few scattered rhonchi Abd: soft, nontender Ext: no edema Laboratory Results - last 24 hr 11/13/19 11/13/19 05:50 05:50 WBC 7.5 RBC 4.13 Hgb 13.5 Hct 40.1 MCV 97.3 H MCH 32.7 MCHC 33.7 RDW 13.3 Plt Count 303 MPV 8.3 Absolute Neuts (auto) 6.0 Neutrophils % 79.6 Lymphocytes % 13.1 D Monocytes % 7.2 Eosinophils % 0.0 Basophils % 0.1 Nucleated RBC % 0 Sodium 137 Potassium 4.3 Chloride 104 Carbon Dioxide 25 Anion Gap 9 BUN 19.8 H Creatinine 0.7 Est GFR (CKD-EPI)AfAm 102.46 Est GFR (CKD-EPI)NonAf 88.40 Random Glucose 154 H Calcium 9.0 Phosphorus 3.9 Magnesium 2.6 H ASSESSMENT AND PLAN: Acute Hypercapneic Respiratory Failure Acute COPD Exacerbation +Troponins likely Demand Ischemia Irritable Bowel Syndrome Smoker - continue medrol - inhaled bronchodilators standing and PRN - o2 to keep Spo2 >90% - NIPPV support QHS and PRN - PO as tolerated - DVT prophylaxis - No smoking discussed Dr Harris
--- NOTE | 2019-11-13 14:05 | PN ---
Teaching Attending Note Name of Resident: Ivette Cruz ATTENDING PHYSICIAN STATEMENT I saw and evaluated the patient. I reviewed the resident's note and discussed the case with the resident. I agree with the resident's findings and plan as documented. SUBJECTIVE: Seen and examined at bedside. No acute events overnight. Feeling better, still with HOWARD. OBJECTIVE: Vital Signs - 24 hr 11/12/19 11/12/19 11/12/19 17:00 17:29 21:00 Temperature 97.9 F Pulse Rate 106 H Respiratory 20 20 Rate Blood Pressure 161/83 O2 Sat by Pulse 97 97 Oximetry (%) 11/12/19 11/13/19 11/13/19 22:00 02:00 06:00 Temperature 98.7 F 97.7 F 97.6 F Pulse Rate 100 H 86 90 Respiratory 20 20 20 Rate Blood Pressure 156/86 114/57 L 151/81 O2 Sat by Pulse Oximetry (%) 11/13/19 11/13/19 09:00 10:00 Temperature 97.8 F Pulse Rate 70 Respiratory 22 H 22 H Rate Blood Pressure 146/70 O2 Sat by Pulse 97 Oximetry (%) Physical Exam: Gen: NAD CVS: s1s2, rrr Lungs: end exp wheeze bilaterally, good air entry, nonlabored Abdomen: soft, ntnd, nabs Ext: no cce Current Medications Generic Name Dose Route Start Last Admin Trade Name Freq PRN Reason Stop Dose Admin Albuterol Sulfate 1 amp 11/10/19 17:24 11/12/19 06:25 Ventolin 0.083% Nebulizer Soln - NEB 1 amp Q4H PRN Administration SHORT OF BREATH/WHEEZING Albuterol/Ipratropium 1 amp 11/10/19 20:00 11/13/19 12:00 Duoneb - NEB 1 amp RQ4H [facility] Administration Budesonide/Formoterol Fumarate 2 puff 11/10/19 22:00 11/13/19 08:59 Symbicort 160/4.5mcg - IH 2 puff BID [facility] Administration Enoxaparin Sodium 40 mg 11/11/19 10:00 11/13/19 09:00 Lovenox - SQ 40 mg DAILY [facility] Administration Guaifenesin/Codeine Phosphate 10 ml 11/12/19 14:30 11/13/19 05:51 Robitussin Ac - PO 10 ml Q8H [facility] Administration Methylprednisolone Sodium Succinate 60 mg 11/12/19 18:00 11/13/19 09:00 Solu-Medrol - IVPUSH 60 mg Q8H [facility] Administration Nicotine 21 mg 11/11/19 10:00 11/13/19 09:00 Nicoderm Patch - TD 21 mg DAILY [facility] Administration Laboratory Results - last 24 hr 11/13/19 11/13/19 05:50 05:50 WBC 7.5 RBC 4.13 Hgb 13.5 Hct 40.1 MCV 97.3 H MCH 32.7 MCHC 33.7 RDW 13.3 Plt Count 303 MPV 8.3 Absolute Neuts (auto) 6.0 Neutrophils % 79.6 Lymphocytes % 13.1 D Monocytes % 7.2 Eosinophils % 0.0 Basophils % 0.1 Nucleated RBC % 0 Sodium 137 Potassium 4.3 Chloride 104 Carbon Dioxide 25 Anion Gap 9 BUN 19.8 H Creatinine 0.7 Est GFR (CKD-EPI)AfAm 102.46 Est GFR (CKD-EPI)NonAf 88.40 Random Glucose 154 H Calcium 9.0 Phosphorus 3.9 Magnesium 2.6 H all imaging reports reviewed ASSESSMENT AND PLAN: 58 year old woman with a history of COPD, IBS who presented to the ED with SOB. 1. Acute hypoxic and hypercapneic respiratory failure 2/2 acute exacerbation of COPD -c/w iv steroids -inhaled BD -BIPAP QHS and PRN -pulm eval appreciated 2. Demand ischemia due to above 3. Irritable bowel syndrome, stable, diarrhea stopped 4. Smoking cessation counseling
[2019-11-13] MEDS ORDERED: IBUPROFEN 400 MG TABLET (FP) PO ONE (14:15)
--- NOTE | 2019-11-13 14:25 | PN ---
Progress Note (short form) - Note Progress Note: Hospitalist Medicine Used BiPAP overnight and this AM. Breathing has improved. Vitals 11/13/19 10:00 Temperature 97.8 F Pulse Rate 70 Respiratory 22 H Rate Blood Pressure 146/70 Physical Exam general: resting in bed, in NAD. heent: NCAT, PERRLA neck: supple cardio: S1, S2 RRR. no r/mg pulm: +few wheezes - upper lobes. 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 11/08/19 18:50 Blood - Peripheral Venous Blood Culture - Preliminary NO GROWTH OBTAINED AFTER 72 HOURS, INCUBATION TO CONTINUE FOR 2 DAYS. Imaging 11/08/19: EKG: sinus tach, rate 126bpm, qtc 457ms. possible LAE 11/08/19: CXR:aortic plaque, prominent hilar markings, no sign of infiltrate or failure 11/09/19: CXR: no acute chest path 11/10/19: CXR: hyperinflation, normal mediastinum 11/10/19: ECHO: LVSF 50-55%, grade 1 diastolic dysfunction, mild MR, mild , no pericardial effusion 11/11/19: CXR: since previous study, well expanded lung lyon, normal mediastinum, no sign of acute process Assessment/Plan 58y/o F with history of COPD (no prior intubation), irritable bowel syndrome, who presented with complaint of shortness of breath. Admitted for acute COPD exacerbation requiring BiPAP likely due to anxious state. #Acute hypoxic RF 2/2 COPD exacerbation -has been requiring BiPAP. wean as tolerated -abx (cef, zithro) have been d/c, as with diarrhea. no sign of CAP on CXR -xanax PRN for anxiety -on medrol 60mg IVP q8h -symbicort, duonebs RQID, ventolin PRN -robitussin PRN -Pulm: Dr. Harris #Troponinemia likely 2/2 demand, COPD exac -trending down. do not need to cont trending -has been asymptomatic #Nicotine dependence -c/w nicotine patch -outpt resources on d/c #F/E/N does not req IVF cont to follow lytes reg diet; however NPO while on BiPAP. avoid aspiration #PPX DVT: on lovenox #Dispo monitoring on tele will need pre and post on d/c lives independently
[2019-11-14] MEDS: ALBUTEROL SO4 2.5/IPRATROPIUM 0.5 INH SOL 3 ML VIAL.NEB. NEB SCH ×3 (00:05→07:40)
[2019-11-14] MEDS: methylPREDNISolone NA SUCC 40 MG/1 ML VIAL IVPUSH SCH ×2 (02:00→09:12)
[2019-11-14] MEDS: guaiFENesin/CODEINE 5 ML UNIT-DOSE CUPS PO SCH ×2 (05:37→14:18)
[2019-11-14 07:48] LABS: BLOOD UREA NITROGEN 16.9 mg/dL (7-18); CALCIUM 8.9 mg/dL (8.5-10.1); CREATININE 0.7 mg/dL (0.55-1.3); POTASSIUM 4.3 mmol/L (3.5-5.1)
[2019-11-14 07:57] VITALS: TEMP 98.5
[2019-11-14] MEDS: NICOTINE 21 MG/24 HOURS TOPICAL PATCH TD SCH (09:14)
[2019-11-14] MEDS: ENOXAPARIN NA (PORCINE) 40 MG/0.4 ML DISP.SYRIN SQ SCH (09:14)
[2019-11-14] MEDS ORDERED: TIOTROPIUM BROMIDE 2.5 MCG (SPIRIVA) RESPIMAT INHALER IH SCH (11:15)
--- NOTE | 2019-11-14 12:04 | PN ---
Progress Note (short form) - Note Progress Note: Feels overall better. NAD on NC o2. Saturation 87% on RA at rest. Intake & Output 11/11/19 11/12/19 11/13/19 11/14/19 23:59 23:59 23:59 23:59 Intake Total 6706 798 4575 150 Balance 1773 852 7980 150 Last Vital Signs Temp Pulse Resp BP Pulse Ox 98.5 F 84 20 142/77 93 L 11/14/19 07:56 11/14/19 07:56 11/14/19 07:56 11/14/19 07:56 11/14/19 08:06 Active Medications Albuterol Sulfate (Ventolin 0.083% Nebulizer Soln -) 1 amp NEB Q4H PRN PRN Reason: SHORT OF BREATH/WHEEZING Last Admin: 11/12/19 06:25 Dose: 1 amp Budesonide/Formoterol Fumarate (Symbicort 160/4.5mcg -) 2 puff IH BID [facility] Last Admin: 11/13/19 22:08 Dose: 2 puff Enoxaparin Sodium (Lovenox -) 40 mg SQ DAILY [facility] Last Admin: 11/14/19 09:14 Dose: 40 mg Guaifenesin/Codeine Phosphate (Robitussin Ac -) 10 ml PO Q8H [facility] Last Admin: 11/14/19 05:37 Dose: 10 ml Methylprednisolone Sodium Succinate (Solu-Medrol -) 60 mg IVPUSH Q8H [facility] Last Admin: 11/14/19 09:12 Dose: 60 mg Nicotine (Nicoderm Patch -) 21 mg TD DAILY [facility] Last Admin: 11/14/19 09:14 Dose: 21 mg Tiotropium [place] (Spiriva Respimat) 2 puff IH DAILY [facility] Gen: NAD Heart: RRR Lung: distant breath sounds, no wheeze, few scattered rhonchi Abd: soft, nontender Ext: no edema Laboratory Results - last 24 hr 11/14/19 05:50 Sodium 136 Potassium 4.3 Chloride 102 Carbon Dioxide 27 Anion Gap 7 L BUN 16.9 Creatinine 0.7 Est GFR (CKD-EPI)AfAm 102.46 Est GFR (CKD-EPI)NonAf 88.40 Random Glucose 167 H Calcium 8.9 ASSESSMENT AND PLAN: Acute Hypercapneic Respiratory Failure Acute COPD Exacerbation +Troponins likely [place]and Ischemia Irritable Bowel Syndrome Smoker - Prednisone taper over 12 days: starting at 40mg - Patient has qualified for home O2 - DC with Symbicort and Spiriva and Albuterol PRN - No smoking discussed - Follow in the office in [address] Harris
[2019-11-14] MEDS: BUDESONIDE/FORMETEROL FUMARATE 160/4.5 mcg INHALER IH SCH (12:10)
--- NOTE | 2019-11-14 15:50 | PN ---
Progress Note (short form) - Note Progress Note: Hospitalist Medicine Used BiPAP in the night. Breathing has improved. Seen ambulating, with NC. Qualified for home 02. Forms sent Vitals 11/14/19 12:50 Temperature 98.5 F Pulse Rate 82 Respiratory 20 Rate Blood Pressure 135/97 Physical Exam general: resting in bed, in NAD. heent: NCAT, PERRLA neck: supple cardio: S1, S2 RRR. no r/mg pulm: +b/l wheezes - upper lobes. 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 11/08/19 18:50 Blood - Peripheral Venous Blood Culture - Preliminary NO GROWTH OBTAINED AFTER 72 HOURS, INCUBATION TO CONTINUE FOR 2 DAYS. Imaging 11/08/19: EKG: sinus tach, rate 126bpm, qtc 457ms. possible LAE 11/08/19: CXR:aortic plaque, prominent hilar markings, no sign of infiltrate or failure 11/09/19: CXR: no acute chest path 11/10/19: CXR: hyperinflation, normal mediastinum 11/10/19: ECHO: LVSF 50-55%, grade 1 diastolic dysfunction, mild MR, mild , no pericardial effusion 11/11/19: CXR: since previous study, well expanded lung lyon, normal mediastinum, no sign of acute process Assessment/Plan 58y/o F with history of COPD (no prior intubation), irritable bowel syndrome, who presented with complaint of shortness of breath. Admitted for acute COPD exacerbation requiring BiPAP likely due to anxious state. #Acute hypoxic RF 2/2 COPD exacerbation -will wean off BipAP -abx (cef, zithro) have been d/c, as with diarrhea. no sign of CAP on CXR -xanax PRN for anxiety -on medrol 60mg IVP q8h, however can d/c home on prednisone -d/c home on symbicort, spiriva, albuterol PRN -robitussin PRN -Pulm: Dr. Harris; f/u in 2 weeks #Troponinemia likely 2/2 demand, COPD exac -trending down. do not need to cont trending -has been asymptomatic #Nicotine dependence -c/w nicotine patch -outpt resources on d/c #F/E/N does not req IVF cont to follow lytes reg diet; however NPO while on BiPAP. avoid aspiration #PPX DVT: on lovenox #Dispo monitoring on tele per pre and post, qualifies for home 02. currently being set up anticipate d/c when home 02 setup lives independently <Ivette Cruz - Last Filed: 11/14/19 15:50> - Note Progress Note: Patient is seen and examined Seen and examined. Please see resident note for further historical information. I personally verified all the dobson historical formation and exam findings. Personally in pretted imaging and diagnostics and reviewed appropriate results. I reviewed all labs and vital signs are per the resident note and EMR as documented. I agree with the above assessment and plan unless supplemented by myself and the following. Will stop DuoNeb just keep her on albuterol nebulizers. Start Spiriva We will get oxygen level rest and on pre-and post and according to that we will set up home oxygen when DC. <Shasha Cole - Last Filed: 11/14/19 16:22>
[2019-11-14] MEDS ORDERED: PANTOPRAZOLE 40 MG TABLET (FP) PO SCH (16:00)
[2019-11-14 16:49] VITALS: BP 132/84; PULSE 79
== END 2019-11-14 19:30 | disposition home or self-care (01) | DRG 189 ==
LOC: JER 18:42 → JICU 19:53 → J4W 11-10 17:17
PROVIDERS: ADMIT Internal Medicine; ATTEND Internal Medicine
PROC: 5A09457 Assistance with Respiratory Ventilation, 24-96 Consecutive Hours, Continuous Positive Airway Pressure (ICD-10-PCS; principal; 2019-11-08)
DX: J96.01 Acute respiratory failure with hypoxia (principal); J44.1 Chronic obstructive pulmonary disease with (acute) exacerbation; I24.8 Other forms of acute ischemic heart disease; F17.210 Nicotine dependence, cigarettes, uncomplicated; R00.0 Tachycardia, unspecified; J96.02 Acute respiratory failure with hypercapnia; K58.9 Irritable bowel syndrome, unspecified; R19.7 Diarrhea, unspecified
CPT/HCPCS: 36415; 36600; 71045-TC-FY; 80048; 80053; 81003; 82375; 82803; 83050; 83605; 83735; 84100; 84484; 85025; 85610; 85730; 87040; 87086; 87186; 87804; 93005; 93010; 93306-TC; 94640; 94660; 94761; 99285-25

== ENCOUNTER 2024-03-13 20:15 | Inpatient (IN) | payer OTHER ==
[2024-03-13] MEDS ORDERED: ALBUTEROL SO4 2.5/IPRATROPIUM 0.5 INH SOL 3 ML VIAL.NEB. NEB ONE ×3 (20:33→21:48)
[2024-03-13] MEDS: ALBUTEROL SO4 2.5/IPRATROPIUM 0.5 INH SOL 3 ML VIAL.NEB. NEB SCH (21:04)
[2024-03-13] MEDS: SODIUM CHLORIDE 1,000 ML IV ONE (21:05)
[2024-03-13] MEDS ORDERED: methylPREDNISolone NA SUCC 125 MG/2 ML VIAL ONE (21:08)
[2024-03-13] MEDS: methylPREDNISolone NA SUCC 125 MG/2 ML VIAL IVPUSH ONE (21:10)
[2024-03-13 21:13] LABS: HEMATOCRIT 38.7 % (32.4-45.2); HEMOGLOBIN 12.7 G/dL (10.7-15.3); MCH 31.7 pg (25.7-33.7); MCHC 32.9 g/dl (32.0-36.0); MEAN CELL VOLUME 96.5 fl (80-96); MEAN PLT VOLUME 8.3 fl (7.5-11.1); PLATELET COUNT 342.5 10^3/uL (134-434); RBC 4.01 10^6/uL (3.60-5.2); RDW 13.5 % (11.6-15.6); WHITE BLOOD COUNT 9.2 10^3/uL (4.0-10.8)
[2024-03-13 21:32] LABS: ALBUMIN 3.7 g/dl (3.4-5.0); BILIRUBIN,TOTAL 0.4 mg/dl (0.2-1); CALCIUM 8.8 mg/dl (8.5-10.1); MAGNESIUM 1.3 mg/dL (1.8-2.4); PHOSPHOROUS 3.3 (2.5-4.9); TOT PROT 6.7 g/dl (6.4-8.2)
[2024-03-13 21:37] LABS: POTASSIUM 2.5 mmol/L (3.5-5.1)
[2024-03-13] MEDS ORDERED: POTASSIUM CHLORIDE TABS 20 MEQ TABLET.ER (FP) PO ONE (22:11)
[2024-03-13] MEDS ORDERED: KCL 10 MEQ IVPB 20 MEQ/200 ML INFUS.BAG IVPB ONE (22:11)
[2024-03-13] MEDS: KCL 20 MEQ PREMIX BAG 20 MEQ/100 ML INFUS.BAG IVPB SCH (22:22)
[2024-03-13] MEDS: POTASSIUM CHLORIDE TABS 20 MEQ TABLET.ER (FP) PO ONE (22:22)
[2024-03-13 23:20] LABS: VENOUS BASE EXCESS 4.7 mmol/L (-2-2); VENOUS O2 SATURATION 98.7 % (70-80); VENOUS PCO2 40.7 mmHg (38-52); VENOUS PH 7.467 (7.310-7.410)
[2024-03-14 02:14] VITALS: BMI 20.2
[2024-03-14] MEDS: AZITHROMYCIN 250 MG TABLET PO SCH (03:32)
[2024-03-14] MEDS ORDERED: MAGNESIUM 2GM/50ML STERILE WATER IVPB IVPB ONE (04:17)
[2024-03-14] MEDS: SODIUM CHLORIDE 1,000 ML IV SCH (05:16)
[2024-03-14] MEDS: MAGNESIUM 2GM/50ML STERILE WATER IVPB IVPB ONE (05:23)
[2024-03-14] MEDS: ALBUTEROL SO4 2.5/IPRATROPIUM 0.5 INH SOL 3 ML VIAL.NEB. NEB SCH (05:28)
[2024-03-14] MEDS: AZITHROMYCIN 500 MG TABLET PO SCH (06:09)
[2024-03-14 07:57] LABS: BASO % 0.1 % (0-2.0); HEMATOCRIT 31.2 % (32.4-45.2); HEMOGLOBIN 10.6 GM/dL (10.7-15.3); LYMPH % 11.8 % (8-40); MCH 32.7 pg (25.7-33.7); MCHC 33.9 g/dl (32.0-36.0); MEAN CELL VOLUME 96.4 fl (80-96); MEAN PLT VOLUME 7.9 fl (7.5-11.1); MONO % 2.1 % (3.8-10.2); PLATELET COUNT 302 10^3/uL (134-434); RBC 3.24 M/mm3 (3.60-5.2); RDW 13.2 % (11.6-15.6); WHITE BLOOD COUNT 5.8 K/mm3 (4.0-10.0)
[2024-03-14 08:21] LABS: CHLORIDE 92 mmol/L (98-107); SODIUM 135 mmol/L (136-145)
[2024-03-14 08:23] LABS: ALBUMIN 2.4 g/dl (3.4-5.0); BLOOD UREA NITROGEN 15.8 mg/dL (7-18); CALCIUM 7.4 mg/dL (8.5-10.1); CO2 25 mmol/L (21-32); GLUCOSE,RANDOM 159 mg/dL (74-106); MAGNESIUM 2.1 mg/dL (1.8-2.4)
[2024-03-14 08:26] LABS: CREATININE 0.8 mg/dL (0.55-1.3); PHOSPHOROUS 2.4 mg/dL (2.5-4.9); SGOT/AST 32 U/L (15-37); SGPT/ALT 19 U/L (13-61)
[2024-03-14 08:27] LABS: BILIRUBIN,TOTAL 0.5 mg/dL (0.2-1); TOT PROT 5.9 g/dl (6.4-8.2)
[2024-03-14 08:29] LABS: ALK PHOS 80 U/L (45-117); ANION GAP 17 mmol/L (4-13); POTASSIUM 2.7 mmol/L (3.5-5.1)
[2024-03-14] MEDS: POTASSIUM CHLORIDE TABS 20 MEQ TABLET.ER (FP) PO ONE (09:23)
[2024-03-14] MEDS: LOSARTAN POTASSIUM 50 MG TABLET PO SCH (09:24)
[2024-03-14] MEDS: ENOXAPARIN NA (PORCINE) 40 MG/0.4 ML DISP.SYRIN SQ SCH (09:25)
[2024-03-14] MEDS: CEFTRIAXONE 1 GM in DEXTROSE 5%-WATER - 50 ML IVPB SCH (09:25)
[2024-03-14] MEDS: methylPREDNISolone NA SUCC 40 MG/1 ML VIAL IVPUSH SCH (09:25)
[2024-03-14] MEDS: amLODIPine BESYLATE 10 MG TABLET (FP) PO SCH (09:25)
[2024-03-14] MEDS: KCL 10 MEQ IVPB 10 MEQ/100 ML INFUS.BAG IVPB SCH (09:25)
[2024-03-14] MEDS: AZITHROMYCIN IVPB 500 MG/250 ML BAG IVPB SCH (12:17)
[2024-03-14 13:41] LABS: COCAINE, UR NEGATIVE (NEGATIVE); METHADONE, UR NEGATIVE (NEGATIVE); OPIATES, URI NEGATIVE (NEGATIVE); PHENCYCLIDINE,URINE NEGATIVE (NEGATIVE); URINE BARBITURATES NEGATIVE (NEGATIVE)
[2024-03-14 13:48] LABS: URINE AMPHETAMINES NEGATIVE (NEGATIVE); URINE BENZODIAZEPINES POSITIVE (NEGATIVE)
[2024-03-14] MEDS: NAPH,MB-DB/K PH,MBDB POWDER PACKET PO ONE (15:54)
[2024-03-14] MEDS: POTASSIUM CHLORIDE ORAL LIQUID 20 MEQ/15 ML PO ONE (15:54)
[2024-03-14] MEDS: ROSUVASTATIN CA 20 MG TABLET PO SCH (21:20)
[2024-03-14] MEDS: DOXYCYCLINE INJECTION 100 MG in DEXTROSE 5%-WATER 100 ML IVPB SCH (21:20)
[2024-03-14] MEDS ORDERED: DOXYCYCLINE INJECTION 100 MG in DEXTROSE 5%-WATER 100 ML IVPB SCH (22:00)
[2024-03-14] MEDS: BISMUTH SUBSALICYLATE 524 MG/30 ML PO PRN (23:21)
[2024-03-15 07:09] LABS: BASO % 0.1 % (0-2.0); HEMATOCRIT 29.6 % (32.4-45.2); HEMOGLOBIN 10.1 GM/dL (10.7-15.3); LYMPH % 8.9 % (8-40); MCH 32.5 pg (25.7-33.7); MEAN CELL VOLUME 95.6 fl (80-96); MEAN PLT VOLUME 7.7 fl (7.5-11.1); MONO % 7.2 % (3.8-10.2); NEUT % 83.8 % (42.8-82.8); PLATELET COUNT 327 10^3/uL (134-434); RBC 3.09 M/mm3 (3.60-5.2); RDW 13.1 % (11.6-15.6); WHITE BLOOD COUNT 10.1 K/mm3 (4.0-10.0)
[2024-03-15 07:29] LABS: POTASSIUM 3.2 mmol/L (3.5-5.1)
[2024-03-15 07:53] LABS: ALBUMIN 2.4 g/dl (3.4-5.0); BLOOD UREA NITROGEN 10.1 mg/dL (7-18); CALCIUM 8.3 mg/dL (8.5-10.1); MAGNESIUM 1.8 mg/dL (1.8-2.4)
[2024-03-15 07:55] LABS: BILIRUBIN,TOTAL 0.3 mg/dL (0.2-1); CREATININE 0.7 mg/dL (0.55-1.3); PHOSPHOROUS 1.6 mg/dL (2.5-4.9)
[2024-03-15 07:58] LABS: TOT PROT 5.5 g/dl (6.4-8.2)
[2024-03-15] MEDS: KCL 10 MEQ IVPB 10 MEQ/100 ML INFUS.BAG IVPB SCH (10:41)
[2024-03-15] MEDS: POTASSIUM CHLORIDE ORAL LIQUID 20 MEQ/15 ML PO SCH (11:19)
[2024-03-15] MEDS: LORazepam 1 MG TABLET PO PRN (11:19)
[2024-03-15] MEDS: guaiFENesin/D-METHORPHAN HB 10 ML UNIT-DOSE CUPS PO PRN (11:48)
[2024-03-15] MEDS: FLUTICASONE/UMECLIDIN/VILANTER(200-62.5-25 TRELEGY ELLIPTA) INAHLER IH SCH (17:13)
[2024-03-15] MEDS: ALBUTEROL SO4 2.5/IPRATROPIUM 0.5 INH SOL 3 ML VIAL.NEB. NEB SCH (20:59)
[2024-03-16 08:33] LABS: HEMOGLOBIN 10.2 GM/dL (10.7-15.3); MCH 32.3 pg (25.7-33.7); MCHC 33.8 g/dl (32.0-36.0); MEAN CELL VOLUME 95.4 fl (80-96); MEAN PLT VOLUME 7.5 fl (7.5-11.1); PLATELET COUNT 335 10^3/uL (134-434); RBC 3.15 M/mm3 (3.60-5.2); RDW 13.3 % (11.6-15.6); WHITE BLOOD COUNT 12.6 K/mm3 (4.0-10.0)
[2024-03-16 08:54] LABS: ALBUMIN 2.4 g/dl (3.4-5.0); CALCIUM 7.8 mg/dL (8.5-10.1)
[2024-03-16 08:57] LABS: CREATININE 0.7 mg/dL (0.55-1.3)
[2024-03-16 08:59] LABS: BILIRUBIN,TOTAL 0.5 mg/dL (0.2-1); TOT PROT 5.6 g/dl (6.4-8.2)
[2024-03-16] MEDS: SUCRALFATE 1 GM/10 ML UNIT DOSE CUPS PO SCH (10:57)
[2024-03-16] MEDS: PANTOPRAZOLE SOD 40 MG SUSPENSION PACKET PO SCH (13:59)
[2024-03-16] MEDS: POTASSIUM CHLORIDE ORAL LIQUID 20 MEQ/15 ML PO SCH (13:59)
[2024-03-16] MEDS: methylPREDNISolone NA SUCC 40 MG/1 ML VIAL IVPUSH SCH (17:08)
[2024-03-16] MEDS: MELATONIN 5 MG TABLETS PO PRN (21:15)
[2024-03-16] MEDS: POTASSIUM CHLORIDE TABS 20 MEQ TABLET.ER (FP) PO SCH (22:27)
[2024-03-17 07:12] LABS: HEMATOCRIT 29.6 % (32.4-45.2); HEMOGLOBIN 9.9 GM/dL (10.7-15.3); MCH 32.2 pg (25.7-33.7); MCHC 33.5 g/dl (32.0-36.0); MEAN CELL VOLUME 96.2 fl (80-96); MEAN PLT VOLUME 7.6 fl (7.5-11.1); PLATELET COUNT 327 10^3/uL (134-434); RBC 3.08 M/mm3 (3.60-5.2); RDW 13.2 % (11.6-15.6); WHITE BLOOD COUNT 11.5 K/mm3 (4.0-10.0)
[2024-03-17 07:24] LABS: CHLORIDE 100 mmol/L (98-107); SODIUM 139 mmol/L (136-145)
[2024-03-17 07:28] LABS: CALCIUM 8.2 mg/dL (8.5-10.1)
[2024-03-17 07:29] LABS: BLOOD UREA NITROGEN 13.1 mg/dL (7-18); CO2 33 mmol/L (21-32); GLUCOSE,RANDOM 171 mg/dL (74-106); MAGNESIUM 1.4 mg/dL (1.8-2.4)
[2024-03-17 07:32] LABS: CREATININE 0.8 mg/dL (0.55-1.3)
[2024-03-17 07:33] LABS: PHOSPHOROUS 1.8 mg/dL (2.5-4.9)
[2024-03-17 07:35] LABS: ANION GAP 5 mmol/L (4-13); POTASSIUM 2.8 mmol/L (3.5-5.1)
[2024-03-17] MEDS: KCL 10 MEQ IVPB 10 MEQ/100 ML INFUS.BAG IVPB SCH (07:46)
[2024-03-17] MEDS: POTASSIUM CHLORIDE ORAL LIQUID 20 MEQ/15 ML PO ONE ×2 (08:17→15:37)
[2024-03-17] MEDS: MAGNESIUM SULFATE IN WATER 2 GM/50 ML IVPB IVPB ONE (10:49)
[2024-03-17] MEDS ORDERED: SODIUM CHLORIDE NASAL SPRAY 44 ML BOTTLE NS PRN (10:58)
[2024-03-17] MEDS: FLUTICASONE PROP 0.05% 16 GM NASAL SPRAY NS SCH (12:28)
[2024-03-17] MEDS: POTASSIUM PHOSPHATE 30 MM in SODIUM CHLORIDE 500 ML IVPB ONE (12:28)
[2024-03-17 19:19] LABS: POTASSIUM 4.1 mmol/L (3.5-5.1)
[2024-03-17 19:20] LABS: CALCIUM 8.6 mg/dL (8.5-10.1)
[2024-03-17 19:21] LABS: BLOOD UREA NITROGEN 15.1 mg/dL (7-18); MAGNESIUM 1.8 mg/dL (1.8-2.4)
[2024-03-17 19:24] LABS: CREATININE 1.2 mg/dL (0.55-1.3); PHOSPHOROUS 2.8 mg/dL (2.5-4.9)
[2024-03-18 07:07] LABS: HEMATOCRIT 30.5 % (32.4-45.2); HEMOGLOBIN 10.1 GM/dL (10.7-15.3); MCH 31.8 pg (25.7-33.7); MCHC 33.1 g/dl (32.0-36.0); MEAN CELL VOLUME 96.1 fl (80-96); MEAN PLT VOLUME 7.6 fl (7.5-11.1); PLATELET COUNT 333 10^3/uL (134-434); RBC 3.17 M/mm3 (3.60-5.2); RDW 13.1 % (11.6-15.6); WHITE BLOOD COUNT 12.8 K/mm3 (4.0-10.0)
[2024-03-18 07:18] LABS: POTASSIUM 3.5 mmol/L (3.5-5.1)
[2024-03-18 07:22] LABS: ALBUMIN 2.4 g/dl (3.4-5.0); BLOOD UREA NITROGEN 15.8 mg/dL (7-18); CALCIUM 8.3 mg/dL (8.5-10.1)
[2024-03-18 07:23] LABS: MAGNESIUM 1.7 mg/dL (1.8-2.4)
[2024-03-18 07:25] LABS: CREATININE 0.9 mg/dL (0.55-1.3); PHOSPHOROUS 2.9 mg/dL (2.5-4.9)
[2024-03-18 07:27] LABS: BILIRUBIN,TOTAL 0.3 mg/dL (0.2-1); TOT PROT 4.9 g/dl (6.4-8.2)
[2024-03-18] MEDS: predniSONE 20 MG TABLET (UD) PO SCH (10:01)
[2024-03-18 10:34] LABS: ANISOCYTOSIS 0; MACROCYTOSIS 1+
[2024-03-18] MEDS ORDERED: ALBUTEROL SO4 2.5/IPRATROPIUM 0.5 INH SOL 3 ML VIAL.NEB. NEB PRN (11:24)
[2024-03-18] MEDS: DOXYCYCLINE HYCLATE 100 MG CAPSULE PO SCH (18:18)
[2024-03-18] MEDS: MAGNESIUM OXIDE 400 MG TABLET (FP) PO SCH (21:19)
[2024-03-19 07:16] LABS: HEMOGLOBIN 9.9 GM/dL (10.7-15.3); MCH 31.9 pg (25.7-33.7); MCHC 33.1 g/dl (32.0-36.0); MEAN CELL VOLUME 96.5 fl (80-96); MEAN PLT VOLUME 7.5 fl (7.5-11.1); PLATELET COUNT 285 10^3/uL (134-434); RBC 3.11 M/mm3 (3.60-5.2); RDW 13.4 % (11.6-15.6); WHITE BLOOD COUNT 11.8 K/mm3 (4.0-10.0)
[2024-03-19 07:34] LABS: POTASSIUM 3.5 mmol/L (3.5-5.1)
[2024-03-19 07:47] LABS: BLOOD UREA NITROGEN 16.2 mg/dL (7-18); CALCIUM 7.9 mg/dL (8.5-10.1); MAGNESIUM 1.7 mg/dL (1.8-2.4)
[2024-03-19 07:50] LABS: CREATININE 0.7 mg/dL (0.55-1.3)
[2024-03-19 09:14] VITALS: BP 122/63; PULSE 96; RESP 20; TEMP 97.8
== END 2024-03-19 13:22 | disposition home health service (06) | DRG 191 ==
LOC: SUPCPDRO 20:15 → FER 20:15 → J4S 03-14 01:51
PROVIDERS: ADMIT Student in an Organized Health Care Education/Training Program; ATTEND Nurse Practitioner
DX: J44.1 Chronic obstructive pulmonary disease with (acute) exacerbation (principal); C34.90 Malignant neoplasm of unspecified part of unspecified bronchus or lung; I24.89 Other forms of acute ischemic heart disease; J96.11 Chronic respiratory failure with hypoxia; E78.5 Hyperlipidemia, unspecified; I10 Essential (primary) hypertension; E87.6 Hypokalemia; E83.42 Hypomagnesemia; E83.39 Other disorders of phosphorus metabolism; K21.9 Gastro-esophageal reflux disease without esophagitis; F41.9 Anxiety disorder, unspecified; R19.7 Diarrhea, unspecified
CPT/HCPCS: 0241U-QW; 36415; 71045-TC-FY; 71250-TC; 80048; 80053; 80307; 81003; 81015; 82550; 82553; 82803; 83605; 83735; 84100; 84132; 84484; 85025; 85027; 87040; 93005; 93010; 93306-TC; 94640; 97116-GP; 97162-GP; 99285-25

== ENCOUNTER 2024-07-23 08:24 | Day surgery (SDC) | payer OTHER ==
[2024-07-15 15:41] VITALS: BMI 20.9
[2024-07-23 08:47] VITALS: RESP 22
[2024-07-23 08:50] VITALS: BP 150/71; PULSE 95; TEMP 97
[2024-07-23] MEDS ORDERED: EPINEPHrine/PF 1 MG/1 ML (1:1,000) AMPULE ONE (09:10)
[2024-07-23] MEDS ORDERED: BSS (NA/CA/MG/K) BALANCED SALT SOLUTION OPHTH SOLN 15 ML BOTTLE ONE (09:11)
[2024-07-23] MEDS ORDERED: TETRACAINE 0.5% OPHTH SOLN 2 ML BOTTLE ONE (09:11)
[2024-07-23] MEDS ORDERED: LIDOCAINE 1% P/F 10 MG/ML VIAL ONE (09:11)
[2024-07-23] MEDS ORDERED: NEO/POLYMYX B SULF/DEXAMETH OPHTHALMIC 5ML BOTTLE ONE (09:11)
[2024-07-23] MEDS ORDERED: CARBACHOL 0.01% INTRA-OCULAR 1.5 ML VIAL ONE (09:11)
== END 2024-07-23 09:26 | disposition home or self-care (01) ==
LOC: FASU 08:24
PROVIDERS: ATTEND Ophthalmology
PROC: 08RK3JZ Replacement of Left Lens with Synthetic Substitute, Percutaneous Approach (ICD-10-PCS; principal; 2024-07-23)
DX: Z53.09 Procedure and treatment not carried out because of other contraindication (principal)